=== PATIENT | female | born 1945 | race African-American/Black ===

== ENCOUNTER 2020-05-21 08:18 | Outpatient (REF) | payer MEDICAID, OTHER, SELFPAY ==
--- NOTE | ~2020-05-21 | CT_ITS ---
EXAMINATION: CT ABDOMEN AND PELVIS WITH CONTRAST CLINICAL INFORMATION: Colon cancer COMPARISON: Previous CT of the abdomen and pelvis most recent December 2019 TECHNIQUE: Multidetector volumetric images were obtained from the superior aspect of the liver through the pubic symphysis following administration 85 mL of Omnipaque 350 intravenous contrast. Sagittal and coronal reformatted images were obtained on the technologist's workstation. Oral contrast: Yes This CT examination was performed using dose optimization techniques as appropriate, variously including the following: *Automated exposure control *Adjustment of mA and/or kV according to patient size (this includes techniques or standardized protocols for targeted exams where dose is matched to indication/reason for exam; i.e. extremities or head) *Use of iterative reconstruction technique DLP: 358 mGy-cm FINDINGS: LUNG BASES: There are multiple new small bilateral pulmonary nodules. The largest measures 5 mm in the left lower lobe axial image 13 series 5, in the right lower lobe axial image 6 series 5 and in the right middle lobe axial image 1 series 5. LIVER, GALLBLADDER, AND BILIARY TREE: There are 2 new low-attenuation liver lesions measuring 1 cm in the medial segment of the left lobe of the liver and 6 mm in the anterior segment of the right lobe of the liver axial image 22 series 3. The gallbladder is unremarkable. There is no intra or extrahepatic biliary duct dilatation. PANCREAS: Unremarkable. SPLEEN: Unremarkable. ADRENAL GLANDS: Unremarkable. KIDNEYS AND URETERS: The kidneys are normal in size, shape, and attenuation. No hydronephrosis, hydroureter, or calculi seen. No perinephric stranding. BLADDER: Unremarkable. GASTROINTESTINAL TRACT: There are postsurgical changes to the right colon. The small and large bowel are otherwise unremarkable. The appendix is not identified and has presumably been removed. ABDOMINAL WALL: No significant hernia is appreciated. LYMPH NODES: There is increasing diffuse lymphadenopathy. There are increasing retrocrural lymph nodes in the chest and retroperitoneal lymph nodes and small bowel mesentery lymph nodes in the abdomen. Largest lymph node is a left periaortic retroperitoneal lymph node measuring 1.7 x 2.6 cm axial image 40 series 3 compared to 1.4 x 1.6 cm on December 2019 exam. No pelvic lymphadenopathy is seen. There is no ascites. VASCULAR: Unremarkable. PELVIC VISCERA: Unremarkable. OSSEOUS STRUCTURES: There are degenerative changes of the spine. No fracture or bone lesion is seen. CT/CT abdomen pelvis w con IMPRESSION: New bibasilar pulmonary nodules. New liver lesions. Increasing abdominal lymphadenopathy and retrocrural adenopathy in the lower chest. Findings are suggestive of progression of metastatic disease.
[2020-05-21] MEDS: Barium Sulfate Oral (Vanilla) 450 ML ORAL.SUSP 900 ML PO (10:27)
[2020-05-21] MEDS: iohexoL 350 MG/ML 100 ML INFUS..BTL 85 ML IV (10:53)
--- NOTE | 2020-05-23 13:19 | MHC.HEMONCSW ---
[facility] IS WORSENING PER DR. ESCALANTE. SHE TOLD THIS TO PATIENT AND HER FLOATMAN DENAE. I TRIED TO REACH DENAE TO FIND OUT IF PATIENT IS RETURNING TO [place] OF IF A LETTER IS NEEDED FAMILY MAY COME HERE. WAIT TO HEAR BACK.
== END 2020-05-21 08:19 | disposition home or self-care (01) ==
LOC: HO.CT 08:18
PROVIDERS: Visit Provider Internal Medicine Medical Oncology
DX: C18.9 Malignant neoplasm of colon, unspecified (principal)
CPT/HCPCS: 74177; Q9967

== ENCOUNTER → 2023-12-08 14:42 | Outpatient (RCR) | payer MEDICAID, OTHER, SELFPAY ==
--- NOTE | 2020-01-15 13:23 | P.PNHO_ITS ---
Medical Summary - Medical Summary Chief complaint: FOLLOW-UP FOR: Colon carcinoma with disease recurrence. Medical Summary: DIAGNOSIS: A. Ascending colon: Fragments of invasive moderately differentiated adenocarcinoma, and fragments of hyperplastic colonic mucosa. B. Colon, splenic flexure polyp: Tubular adenoma. She had resection done on March by Dr. Farley. Pathology revealed: Margins uninvolved by tumor/dysplasia. Three out of 14 (3/14) lymph nodes positive for metastatic carcinoma. See synoptic report below. TUMOR SITE: Ascending colon TUMOR SIZE: 5.0 x 4.5 cm TUMOR PERFORATION: Not identified HISTOLOGIC TYPE: Adenocarcinoma HISTOLOGIC GRADE: G2: Moderately differentiated TUMOR EXTENSION: Tumor invades through the muscularis propria into the pericolonic tissue MARGINS: All margins are uninvolved by carcinoma or dysplasia LYMPHOVASCULAR INVASION: Not identified PERINEURAL INVASION: Not identified TUMOR DEPOSITS: Present, one Tumor deposit REGIONAL LYMPH NODES: NUMBER INVOLVED: 3 NUMBER EXAMINED: 14 ADDITIONAL FINDINGS: Appendix within normal limits, inflammatory polyp PATHOLOGIC STAGE: pT3N1b CURRENT THERAPY: FOLFOX -based chemotherapy, started April 26. CYCLE 6 DAY 15 on 11/01 2018. Interval History Interval history: This is a pleasant 74-year-old lady, here for a follow-up visit. She does not feel too well. She has noticed some mouth sores. She denies any cough nor sputum. She denies any fever nor chills. She denies headache no dizziness. No chest pain or trouble breathing. She denies any abdominal pain nausea vomiting heartburn indigestion. Bowels are working without any gross blood in it. Her appetite is good. Her weight is stable. She feels numbness and tingling in her hands and legs. It is about the same, as before. She is in good spirits. Rest of the review of systems is unremarkable. Review of Systems - Constitutional Reports fatigue, Reports lack of energy - Eyes Denies blurry vision - ENT Reports system reviewed and no additional complaints, except as documented, Reports mouth lesions, Denies epistaxis - Cardiovascular Denies excessive sweating - Respiratory Denies cough - Gastrointestinal Denies abdominal pain, Denies vomiting blood - Musculoskeletal Denies abnormal walking - Integumentary/Breasts Skin/Breast: Denies bleeding lesions - Neurologic Reports system reviewed and no additional complaints, except as documented - Psychiatric Reports change in appetite - Hematologic/Lymphatic Denies easy bleeding - Allergic/Immunologic Denies GI upset with certain foods Home Medications and Allergies Home Medications Medication Instructions Recorded Confirmed Type acetaminophen 500 mg PO Q6H PRN 01/15/20 01/15/20 History ascorbic acid (vitamin C) 1,000 mg PO DAILY 01/15/20 01/15/20 History nkqnphirbh-vhkhpcymhhunc-alwr 1 cap PO Q6H PRN 01/15/20 01/15/20 History [Fioricet] docusate sodium [Colace] 100 mg PO DAILY 01/15/20 01/15/20 History ferrous sulfate 324 mg PO BID 01/15/20 01/15/20 History gabapentin 100 mg PO TID 01/15/20 01/15/20 History omeprazole 40 mg PO BID 01/15/20 01/15/20 History tramadol 50 mg PO BID PRN 01/15/20 01/15/20 History vitamin B complex [B 1 tab PO DAILY 01/15/20 01/15/20 History Complex-Vitamin B12] Allergies Allergy/AdvReac Type Severity Reaction Status Date / Time No Known Allergies Allergy Unverified 12/28/19 19:32 [No Known Allergies*] Exam - Constitutional Present: no acute distress - Routine HEENT Exam Head: Present: normal inspection ENT: Present: mucous membranes moist - Routine Neck Exam Present: full ROM - Routine Respiratory Exam Present: CTAB - Routine Cardiovascular Exam Cardiovascular: Present: RRR, S1, S2 - Routine Abdominal Exam Present: soft, nontender - Routine Rectal Exam Patient deferred: digital exam - Routine Extremities Exam Present: nontender Data - Labs CBC & Chem 7: 01/15/20 13:49 01/15/20 13:49 Progress Note: A/P (1) Metastatic colon cancer in female Status: Acute Assessment and plan: This is a pleasant 74 year-old lady, with Colon Cancer She underwent surgical resection on March 15 2018. Pathology revealed 3/ lymph nodes, stage pT3, N1b. She is on adjuvant chemotherapy, with FOLFOX-based regimen, in view of the pos itive Lymph nodes. She had complained of pain in her right upper quadrant area, at one of her previous visits. CT scan of the abdomen showed: New postsurgical changes following right colectomy. Stool throughout the colon questionable for constipation. Thickened heterogeneous-appearing endometrium. Follow-up pelvic ultrasound was done on August 22 and showed: Thickened heterogenous endometrium with cystic areas seen. No visible focal lesion. Ovaries are not seen. She had an exam by Dr. Farley, in November. He noted hemorrhoids. She had a pelvic exam and hysteroscopy under anesthesia on December [address] Roger. Pathology revealed: Endometrium, shavings: Fragments of inactive endometrium with cystic atrophy; few fragments with polypoid features; no fragments of leiomyoma identified. I am so glad there was no malignancy. She is on the Gabapentin 200 mg 3 times a day, for the neuropathy. Her symptoms have improved. I repeated her CT scan of the chest and abdomen. This revealed: Question slight interval increase in soft tissue surrounding the surgical staple line in the right lower quadrant post right colectomy. New low-attenuation or cystic lesion in the small bowel mesentery questionable for a necrotic lymph node. Findings are concerning for possible recurrent disease. Correlation with CEA level and attention on follow-up recommended. Mild diverticulosis of the colon. Repeat CEA level was 1.6. She saw Dr. Farley, to follow-up on the above findings. She had a colonoscopy done on June [address] Farley. It revealed: 1. Some redness on one area of the anastomotic site. 2. Small polyp about 3 mm area of the level of about 60 cm. 3. External hemorrhoids. Pathology revealed: A. Anastomosis, biopsies: Colonic mucosa within normal limits; negative for dysplasia or malignancy. B. Colon, polyp at 60 cm, polypectomy: Tubular adenoma; negative for high- grade dysplasia. Last time, she complained of pain and swelling over the left neck. There was some tenderness and swelling. I proceeded with an ultrasound of the area to rule out any evidence of DVT. This came back negative for DVT. I tried to order a PET/ CT scan to follow-up on the abnormalities on the CT scan from June 06. However her insurance does not cover the PET scan. CT scan of the abdomen from 12/13 revealed: * No evidence of metastatic disease within the chest. * Worse retroperitoneal and mesenteric lymphadenopathy. * Unremarkable right lower quadrant ileocolic anastomosis without evidence of local recurrence. Lymph node, left retroperitoneal, biopsy From 12/28 revealed: - Moderately differentiated adenocarcinoma involving fibrovascular tissue. - Background adipose tissue and skeletal muscle. - Definitive lymph node sampling not seen. COMMENT: The morphology of the tumor is consistent with a colon primary. MSI, lackey-TRK, KRAS, NRAS and BRAF testing can be attempted, though the volume of tumor in the sample is low. PLAN: I am waiting for the molecular test results to return: KRAS etc. So we can make a treatment plan based upon the results. She will return in a couple of weeks for a follow-up visit. She will call for any problems prior to that time. Thanks, - Time Spent With Patient Total time spent is greater than 50% in coordination of care (as documented) at patient's floor/unit and/or counseling patient: 15 - 24 minutes
[2020-01-15 13:44] VITALS: BMI 30.2
[2020-01-15 13:45] VITALS: BP 133/68; PULSE 81; RESP 18; TEMP 36.4; O2SAT 97
[2020-01-15 14:39] LABS: Basophils Percent Auto 0.5 % (0-2); Eosinophils Absolute Auto 0.4 X10*3/uL (0.0-0.4); Hematocrit 36.9 % (37-47); Hemoglobin 11.7 g/dl (12.0-16.0); Imm Gran Abs Auto 0.01 X10*3/uL (0.00-0.03); Imm Gran Pct Auto 0.2 % (0.0-0.4); Lymphocytes Absolute Auto 1.1 X10*3/uL (1.2-4.9); Lymphocytes Percent Auto 26.6 % (20-40); MANUAL DIFF FLAG NO; Mean Corpuscular HGB Conc 31.7 g/dl (31.0-35.0); Mean Corpuscular Hemoglobin 27.7 pg (27.0-33.0); Mean Corpuscular Volume 87.4 fL (80-98); Mean Platelet Volume 9.5 fL (9.4-12.3); Monocytes Absolute Auto 0.3 X10*3/uL (0.1-1.2); Monocytes Percent Auto 7.3 % (2-11); Neutrophils Absolute Auto 2.3 X10*3/uL (2.0-8.3); Neutrophils Percent Auto 56.4 % (45-73); Platelet Count 154 X10*3/uL (160-400); Red Blood Count 4.22 X10*6/uL (4.20-5.50); Red Cell Distribution Width 13.9 % (11.0-16.0); White Blood Count 4.1 X10*3/uL (4.8-10.8)
--- NOTE | 2020-01-15 15:19 | MHC.HEMONC ---
Addendum entered by Pina Frank RN 01/15/20 15:21: Pt has mouth lesions and was previously unable to fill prescription for Magic Mouthwash at preferred pharmacy. New prescription sent to [facility] on [address], pt made aware. Original Note: Patient here for follow up appt today to discuss biopsy results. Labs were drawn, reviewed by MD. Follow up scheduled for 2 weeks.
[2020-01-15 16:57] LABS: Alanine Aminotransferase 15 U/L (0-31); Albumin Level 4.2 g/dL (3.5-5.0); Alkaline Phosphatase 86 U/L (39-117); Anion Gap 12 (12-20); Aspartate Amino Transferase 20 U/L (5-31); Bilirubin Total 1.3 mg/dL (0.0-1.0); Blood Urea Nitrogen 12 mg/dL (9-16); Calcium 9.2 mg/dL (8.4-10.2); Carbon Dioxide 28 mmol/L (22-29); Chloride 103 mmol/L (96-108); Creatinine Clr Calc Pharmacy 59.2; Estimated Glomerular Filt Rate > 60; Glucose Random 115 mg/dL (60-115); Potassium 4.1 mmol/l (3.3-5.1); Sodium 139 mmol/L (135-145)
--- NOTE | 2020-01-16 09:38 | MHC.HEMONCSW ---
PT CONTINUES TREATMENT, RECENT BIOPSY SHOWS ADENOCARCINOMA. S/P CLON SURGERY FOR CANCER. GOOD SUPPORT SYSTEM IS IN PLACE. HER [facility]S WIT[facility] IN [place] [facility] SPONSORED HER TRIP HERE FOR MEDICAL TREATMENT A FEW YEARS AGO. SHE RESIDES WITH A SPONSOR FAMILY AND IS COPING WELL. EDUCATION, RESOURCES, SUPPORT CONTINUE TO BE PROVIDED.
[2020-02-01 15:32] VITALS: BP 134/62; PULSE 68; RESP 18; TEMP 36.4; O2SAT 100
[2020-02-01 15:34] VITALS: BMI 29.4
[2020-02-01 15:56] LABS: MANUAL DIFF FLAG NO
[2020-02-01 16:07] LABS: Basophils Percent Auto 0.7 % (0-2); Eosinophils Absolute Auto 0.5 X10*3/uL (0.0-0.4); Eosinophils Percent Auto 10.1 % (0-4); Hematocrit 36.3 % (37-47); Hemoglobin 11.7 g/dl (12.0-16.0); Lymphocytes Absolute Auto 1.3 X10*3/uL (1.2-4.9); Mean Corpuscular HGB Conc 32.2 g/dl (31.0-35.0); Mean Corpuscular Hemoglobin 28.1 pg (27.0-33.0); Mean Corpuscular Volume 87.1 fL (80-98); Mean Platelet Volume 9.4 fL (9.4-12.3); Monocytes Absolute Auto 0.4 X10*3/uL (0.1-1.2); Monocytes Percent Auto 8.3 % (2-11); Neutrophils Absolute Auto 2.3 X10*3/uL (2.0-8.3); Neutrophils Percent Auto 50.9 % (45-73); Platelet Count 157 X10*3/uL (160-400); Red Blood Count 4.17 X10*6/uL (4.20-5.50); Red Cell Distribution Width 13.5 % (11.0-16.0); White Blood Count 4.5 X10*3/uL (4.8-10.8)
--- NOTE | 2020-02-01 16:17 | PM.HEMONCPN ---
Medical Summary - Medical Summary Chief complaint: follow-up for: recurrent Colon carcinoma. Medical Summary: DIAGNOSIS: A. Ascending colon: Fragments of invasive moderately differentiated adenocarcinoma, and fragments of hyperplastic colonic mucosa. B. Colon, splenic flexure polyp: Tubular adenoma. She had resection done on March by Dr. Farley. Pathology revealed: Margins uninvolved by tumor/dysplasia. Three out of 14 (3/14) lymph nodes positive for metastatic carcinoma. See synoptic report below. TUMOR SITE: Ascending colon TUMOR SIZE: 5.0 x 4.5 cm TUMOR PERFORATION: Not identified HISTOLOGIC TYPE: Adenocarcinoma HISTOLOGIC GRADE: G2: Moderately differentiated TUMOR EXTENSION: Tumor invades through the muscularis propria into the pericolonic tissue MARGINS: All margins are uninvolved by carcinoma or dysplasia LYMPHOVASCULAR INVASION: Not identified PERINEURAL INVASION: Not identified TUMOR DEPOSITS: Present, one Tumor deposit REGIONAL LYMPH NODES: NUMBER INVOLVED: 3 NUMBER EXAMINED: 14 ADDITIONAL FINDINGS: Appendix within normal limits, inflammatory polyp PATHOLOGIC STAGE: pT3N1b CURRENT THERAPY: FOLFOX -based chemotherapy, started April 26. CYCLE 6 DAY 15 on 11/01 2018. Now with disease recurrence. Interval History Interval history: This is a pleasant 74-year-old lady, here for a follow-up visit. She does not feel too well. Earlier in this week she has had abdominal pain. It is in the periumbilical area. Not related to meals. It gets to be up till 10 on 1-10 scale. She denies nausea or vomiting. Bowels are working without any gross blood in it. Her appetite is good. Her weight is stable. She denies any cough nor sputum. She denies any fever nor chills. She denies headache no dizziness. No chest pain or trouble breathing. She feels numbness and tingling in her hands and legs. It is about the same, as before. She is in good spirits. Rest of the review of systems is unremarkable. Review of Systems - Constitutional Reports system reviewed and no additional complaints, except as documented, Reports fatigue - Eyes Reports system reviewed and no additional complaints, except as documented - ENT Reports system reviewed and no additional complaints, except as documented - Cardiovascular Reports system reviewed and no additional complaints, except as documented - Gastrointestinal Reports system reviewed and no additional complaints, except as documented, Reports abdominal pain, Reports bloating, Denies vomiting - Genitourinary Reports no additional female genitourinary complaints - Musculoskeletal Reports system reviewed and no additional complaints, except as documented - Integumentary/Breasts Skin/Breast: Reports no additional skin complaints - Neurologic Reports system reviewed and no additional complaints, except as documented, Denies abnormal gait - Psychiatric Reports system reviewed and no additional complaints, except as documented - Endocrine Reports no additional endocrine complaints - Hematologic/Lymphatic Reports system reviewed and no additional complaints, except as documented - Allergic/Immunologic Reports system reviewed and no additional complaints, except as documented [facility] Functional capacity: independent ambulation Surgical History: Surgical History (Last Updated 02/01/20 @ 16:21 by Girish Roth MD) S/P right colectomy Home Medications and Allergies Home Medications Medication Instructions Recorded Confirmed Type acetaminophen 500 mg PO Q6H PRN 01/15/20 01/15/20 History ascorbic acid (vitamin C) 1,000 mg PO DAILY 01/15/20 01/15/20 History efsmuvnuwo-mbabpalyuaqly-ivhy 1 cap PO Q6H PRN 01/15/20 01/15/20 History [Fioricet] docusate sodium [Colace] 100 mg PO DAILY 01/15/20 01/15/20 History ferrous sulfate 324 mg PO BID 01/15/20 01/15/20 History gabapentin 100 mg PO TID 01/15/20 01/15/20 History omeprazole 40 mg PO BID 01/15/20 01/15/20 History tramadol 50 mg PO BID PRN 01/15/20 01/15/20 History vitamin B complex [B 1 tab PO DAILY 01/15/20 01/15/20 History Complex-Vitamin B12] Allergies Allergy/AdvReac Type Severity Reaction Status Date / Time No Known Allergies Allergy Unverified 12/28/19 19:32 [No Known Allergies*] Exam Vital signs: Vital Signs Temp 97.5 F 02/01/20 15:32 Pulse 68 02/01/20 15:32 Resp 18 02/01/20 15:32 BP 134/62 02/01/20 15:32 Pulse Ox 100 02/01/20 15:32 Intake & Output 01/31/20 02/01/20 02/01/20 18:59 06:59 18:59 Other: Weight 75.4 kg Weight 75.4 kg Body Mass Index 29.4 - Constitutional Present: no acute distress, mild distress - Routine HEENT Exam Head: Present: normal inspection ENT: Present: mucous membranes moist - Routine Neck Exam Present: full ROM - Routine Respiratory Exam Present: CTAB - Routine Cardiovascular Exam Cardiovascular: Present: RRR, S1, S2 - Routine Abdominal Exam Present: nontender - Routine Rectal Exam Patient deferred: digital exam - Routine Extremities Exam Present: nontender - Routine Skin Exam Present: intact - Routine Neurological Exam Present: alert, oriented X3 - Detailed Neurological Exam: Coma Scale Eye Opening: Spontaneous (4) Verbal Response: Oriented (5) - Routine Psychiatric Exam Present: normal affect Data - Labs CBC & Chem 7: 02/01/20 15:45 02/01/20 15:45 Labs: Laboratory Results - last 24 hr 02/01/20 15:45 WBC 4.5 L RBC 4.17 L Hgb 11.7 L Hct 36.3 L MCV 87.1 MCH 28.1 MCHC 32.2 RDW 13.5 Plt Count 157 L MPV 9.4 Immature Gran % (Auto) 0.0 Neut % (Auto) 50.9 Lymph % (Auto) 30.0 [place] % (Auto) 8.3 Eos % (Auto) 10.1 H Baso % (Auto) 0.7 Lymph # (Auto) 1.3 [place] # (Auto) 0.4 Eos # (Auto) 0.5 H Baso # (Auto) 0.0 Abs Immat Gran (auto) 0.00 Absolute Neuts (auto) 2.3 Absolute Nucleated RBC 0.000 Nucleated RBC % (auto) 0.0 Progress Note: A/P (1) Metastatic colon cancer in female Status: Acute Assessment and plan: This is a pleasant 74 year-old lady, with Colon Cancer She underwent surgical resection on March 15 2018. Pathology revealed 3 lymph nodes, stage pT3, N1b. She is on adjuvant chemotherapy, with FOLFOX-based regimen, in view of the positive Lymph nodes. She had complained of pain in her right upper quadrant area, at one of her previous visits. CT scan of the abdomen showed: New postsurgical changes following right colectomy. Stool throughout the colon questionable for constipation. Thickened heterogeneous-appearing endometrium. Follow-up pelvic ultrasound was done on August 22 and showed: Thickened heterogenous endometrium with cystic areas seen. No visible focal lesion. Ovaries are not seen. She had an exam by Dr. Farley, in November. He noted hemorrhoids. She had a pelvic exam and hysteroscopy under anesthesia on December [address] Roger. Pathology revealed: Endometrium, shavings: Fragments of inactive endometrium with cystic atrophy; few fragments with polypoid features; no fragments of leiomyoma identified. I am so glad there was no malignancy. She is on the Gabapentin 200 mg 3 times a day, for the neuropathy. Her symptoms improved. I repeated her CT scan of the chest and abdomen. This revealed: Question slight interval increase in soft tissue surrounding the surgical staple line in the right lower quadrant post right colectomy. New low-attenuation or cystic lesion in the small bowel mesentery questionable for a necrotic lymph node. Findings are concerning for possible recurrent disease. Correlation with CEA level and attention on follow-up recommended. Mild diverticulosis of the colon. Repeat CEA level was 1.6. She saw Dr. Farley, to follow-up on the above findings. She had a colonoscopy done on June [address] Farley. It revealed: 1. Some redness on one area of the anastomotic site. 2. Small polyp about 3 mm area of the level of about 60 cm. 3. External hemorrhoids. Pathology revealed: A. Anastomosis, biopsies: Colonic mucosa within normal limits; negative for dysplasia or malignancy. B. Colon, polyp at 60 cm, polypectomy: Tubular adenoma; negative for high-grade dysplasia. CT scan of the abdomen from 12/13 revealed: * No evidence of metastatic disease within the chest. * Worse retroperitoneal and mesenteric lymphadenopathy. * Unremarkable right lower quadrant ileocolic anastomosis without evidence of local recurrence. biopsy of the lymph node from 12/28 revealed: Lymph node, left retroperitoneal, biopsy: - Moderately differentiated adenocarcinoma involving fibrovascular tissue. - Background adipose tissue and skeletal muscle. - Definitive lymph node sampling not seen. The morphology of the tumor is consistent with a colon primary. MSI, lackey-TRK, KRAS, NRAS and BRAF testing can be attempted, though the volume of tumor in the sample is low. KRAS Mutation: Not Detected PLAN: Results of the KRAS mutation are as above. My plan is to treat her with Irinotecan and Vectibix based regimen. Details of the regimen including potential side effects of skin rash, hypersensitivity reaction, nausea vomiting diarrhea, renal toxicity, peripheral neuropathy, risk of infection, need for antibiotic blood transfusion and growth factors were all addressed with her. She understands and is willing to proceed. Will get prior authorization and get her started next . In the meantime, she has been given a prescription for oxycodone for the pain. She was advised to take a bowel regimen with it. thank you, cc: Dr. Farley. - Time Spent With Patient Total time spent is greater than 50% in coordination of care (as documented) at patient's floor/unit and/or counseling patient: 25 - 35 minutes
[2020-02-01 16:36] LABS: Alanine Aminotransferase 11 U/L (0-31); Albumin Level 4.2 g/dL (3.5-5.0); Alkaline Phosphatase 87 U/L (39-117); Anion Gap 14 (12-20); Aspartate Amino Transferase 18 U/L (5-31); Bilirubin Total 1.7 mg/dL (0.0-1.0); Blood Urea Nitrogen 17 mg/dL (9-16); Calcium 8.9 mg/dL (8.4-10.2); Carbon Dioxide 26 mmol/L (22-29); Chloride 104 mmol/L (96-108); Creatinine Clr Calc Pharmacy 62.1; Estimated Glomerular Filt Rate > 60; Glucose Random 96 mg/dL (60-115); Potassium 4.1 mmol/l (3.3-5.1); Sodium 140 mmol/L (135-145); Total Protein 7.3 g/dL (6.5-8.0)
--- NOTE | 2020-02-01 16:43 | MHC.HEMONC ---
Patient here for follow up with Dr. Roth today as well as a chemotherapy teaching for Irinotecan and Pacitumumab. Patient and her caregiver verablized understanding and agreed to treat patient. Treatment scheduled for next 02/07 at 9am.
--- NOTE | 2020-02-02 11:33 | MHC.HEMONC ---
[place], NO PA REQUIRED FOR CHEMO MEDS, EMEND, NEULASTA. PLEASE SEND ORDER TO HOSPITAL PHARM[facility]Y
[2020-02-08 08:34] VITALS: BMI 29.4
[2020-02-08 09:38] VITALS: BMI 29.8
[2020-02-08 09:39] VITALS: BP 135/63; PULSE 80; RESP 18; TEMP 36.3; O2SAT 98
[2020-02-08 10:18] LABS: MANUAL DIFF FLAG NO
[2020-02-08 10:20] LABS: Basophils Percent Auto 0.2 % (0-2); Eosinophils Absolute Auto 0.3 X10*3/uL (0.0-0.4); Eosinophils Percent Auto 6.8 % (0-4); Hematocrit 34.8 % (37-47); Hemoglobin 11.4 g/dl (12.0-16.0); Imm Gran Abs Auto 0.01 X10*3/uL (0.00-0.03); Imm Gran Pct Auto 0.2 % (0.0-0.4); Lymphocytes Absolute Auto 0.8 X10*3/uL (1.2-4.9); Lymphocytes Percent Auto 19.2 % (20-40); Mean Corpuscular HGB Conc 32.8 g/dl (31.0-35.0); Mean Corpuscular Hemoglobin 28.5 pg (27.0-33.0); Mean Platelet Volume 9.7 fL (9.4-12.3); Monocytes Absolute Auto 0.3 X10*3/uL (0.1-1.2); Monocytes Percent Auto 6.8 % (2-11); Neutrophils Absolute Auto 2.9 X10*3/uL (2.0-8.3); Neutrophils Percent Auto 66.8 % (45-73); Platelet Count 148 X10*3/uL (160-400); Red Cell Distribution Width 13.2 % (11.0-16.0); White Blood Count 4.3 X10*3/uL (4.8-10.8)
[2020-02-08 10:50] LABS: Alanine Aminotransferase 13 U/L (0-31); Alkaline Phosphatase 87 U/L (39-117); Anion Gap 12 (12-20); Aspartate Amino Transferase 20 U/L (5-31); Bilirubin Total 1.6 mg/dL (0.0-1.0); Blood Urea Nitrogen 14 mg/dL (9-16); Calcium 8.8 mg/dL (8.4-10.2); Carbon Dioxide 27 mmol/L (22-29); Chloride 103 mmol/L (96-108); Creatinine Clr Calc Pharmacy 62.6; Estimated Glomerular Filt Rate > 60; Glucose Random 150 mg/dL (60-115); Potassium 4.2 mmol/l (3.3-5.1); Sodium 138 mmol/L (135-145); Total Protein 6.8 g/dL (6.5-8.0)
[2020-02-08] MEDS: Acetaminophen 325 MG TABLET 650 MG PO (11:40)
[2020-02-08] MEDS: dexAMETHasone sod phosphate/NS 12 MG/50 ML PIGGYBACK 200 MG IV (11:42)
[2020-02-08] MEDS: diphenhydrAMINE HCL 50 MG/ML VIAL 25 MG IVPUSH (12:08)
[2020-02-08] MEDS: ondansetron HCL/NS 16 MG/50 ML PIGGYBACK 200 MG IV (12:39)
[2020-02-08] MEDS: Fosaprepitant Dimeglumine 150 MG in 0.9 % Sodium Chloride 145 ML 300 MG IV (13:03)
[2020-02-08] MEDS: oxyCODONE HCl Immed Release 5 MG TABLET PO (15:18)
[2020-02-08] MEDS: Heparin Sodium,Porcine Flush 500 UNIT/5 ML SYRINGE IVFLUSH (16:48)
[2020-02-15 15:10] VITALS: BP 120/68; PULSE 92; RESP 18; TEMP 36.6; O2SAT 99; BMI 28.8
[2020-02-15 16:07] LABS: Basophils Percent Auto 0.4 % (0-2); Eosinophils Percent Auto 1.7 % (0-4); Hematocrit 35.5 % (37-47); Hemoglobin 11.7 g/dl (12.0-16.0); Imm Gran Abs Auto 0.01 X10*3/uL (0.00-0.03); Imm Gran Pct Auto 0.4 % (0.0-0.4); Lymphocytes Absolute Auto 1.5 X10*3/uL (1.2-4.9); Lymphocytes Percent Auto 63.9 % (20-40); MANUAL DIFF FLAG SCAN; Mean Corpuscular Hemoglobin 27.7 pg (27.0-33.0); Mean Corpuscular Volume 84.1 fL (80-98); Mean Platelet Volume 9.5 fL (9.4-12.3); Monocytes Absolute Auto 0.1 X10*3/uL (0.1-1.2); Monocytes Percent Auto 5.4 % (2-11); Neutrophils Absolute Auto 0.7 X10*3/uL (2.0-8.3); Neutrophils Percent Auto 28.2 % (45-73); Platelet Count 136 X10*3/uL (160-400); Red Blood Count 4.22 X10*6/uL (4.20-5.50); Red Cell Distribution Width 12.7 % (11.0-16.0); SCAN SMEAR FLAG 1
[2020-02-15 16:20] LABS: White Blood Count 2.4 X10*3/uL (4.8-10.8)
[2020-02-15 16:37] LABS: SLIDE REVIEW VERIFIED
[2020-02-15 17:27] LABS: Alanine Aminotransferase 15 U/L (0-31); Albumin Level 4.2 g/dL (3.5-5.0); Alkaline Phosphatase 99 U/L (39-117); Anion Gap 14 (12-20); Aspartate Amino Transferase 15 U/L (5-31); Bilirubin Total 0.6 mg/dL (0.0-1.0); Blood Urea Nitrogen 18 mg/dL (9-16); Calcium 8.7 mg/dL (8.4-10.2); Carbon Dioxide 27 mmol/L (22-29); Chloride 101 mmol/L (96-108); Creatinine Clr Calc Pharmacy 54.4; Estimated Glomerular Filt Rate > 60; Glucose Random 188 mg/dL (60-115); Potassium 4.1 mmol/l (3.3-5.1); Sodium 138 mmol/L (135-145); Total Protein 7.2 g/dL (6.5-8.0)
[2020-02-20 15:58] VITALS: BMI 28.9
[2020-02-22 10:07] VITALS: BP 118/58; PULSE 82; RESP 12; TEMP 36.8; O2SAT 98; BMI 28.9
[2020-02-22 10:40] LABS: Eosinophils Percent Auto 0.4 % (0-4); Hematocrit 35.8 % (37-47); Hemoglobin 11.8 g/dl (12.0-16.0); Imm Gran Abs Auto 0.01 X10*3/uL (0.00-0.03); Imm Gran Pct Auto 0.4 % (0.0-0.4); Lymphocytes Absolute Auto 1.1 X10*3/uL (1.2-4.9); Lymphocytes Percent Auto 44.8 % (20-40); MANUAL DIFF FLAG SCAN; Mean Corpuscular Hemoglobin 28.2 pg (27.0-33.0); Mean Corpuscular Volume 85.6 fL (80-98); Monocytes Absolute Auto 0.5 X10*3/uL (0.1-1.2); Monocytes Percent Auto 20.4 % (2-11); Neutrophils Absolute Auto 0.9 X10*3/uL (2.0-8.3); Platelet Count 158 X10*3/uL (160-400); Red Blood Count 4.18 X10*6/uL (4.20-5.50); Red Cell Distribution Width 13.5 % (11.0-16.0); SCAN SMEAR FLAG 1
[2020-02-22 10:42] LABS: White Blood Count 2.5 X10*3/uL (4.8-10.8)
[2020-02-22 11:02] LABS: Alanine Aminotransferase 15 U/L (0-31); Albumin Level 4.1 g/dL (3.5-5.0); Alkaline Phosphatase 96 U/L (39-117); Anion Gap 12 (12-20); Aspartate Amino Transferase 13 U/L (5-31); Bilirubin Total 0.8 mg/dL (0.0-1.0); Blood Urea Nitrogen 15 mg/dL (9-16); Calcium 9.1 mg/dL (8.4-10.2); Carbon Dioxide 27 mmol/L (22-29); Chloride 104 mmol/L (96-108); Creatinine Clr Calc Pharmacy 59.2; Estimated Glomerular Filt Rate > 60; Glucose Random 128 mg/dL (60-115); Potassium 3.7 mmol/l (3.3-5.1); Sodium 139 mmol/L (135-145); Total Protein 6.9 g/dL (6.5-8.0)
[2020-02-22 11:33] LABS: SLIDE REVIEW VERIFIED
[2020-02-22] MEDS: Acetaminophen 325 MG TABLET 650 MG PO (12:26)
[2020-02-22] MEDS: diphenhydrAMINE HCL 25 MG TABLET PO (12:27)
[2020-02-22] MEDS: dexAMETHasone sod phosphate/NS 12 MG/50 ML PIGGYBACK 200 MG IV (12:28)
[2020-02-22] MEDS: ondansetron HCL/NS 16 MG/50 ML PIGGYBACK 200 MG IV (12:53)
[2020-02-22] MEDS: oxyCODONE HCl Immed Release 5 MG TABLET PO (13:07)
[2020-02-22] MEDS: Fosaprepitant Dimeglumine 150 MG in 0.9 % Sodium Chloride 145 ML 300 MG IV (13:08)
--- NOTE | 2020-02-22 13:55 | MHC.HEMONCSW ---
[place]. orders neulasta. no pa for limited.
[2020-02-22] MEDS: Pegfilgrastim Onpro 6 MG/0.6 ML SYR.W..INJ SUBCUT (16:40)
[2020-02-22] MEDS: Heparin Sodium,Porcine Flush 500 UNIT/5 ML SYRINGE IVFLUSH (16:40)
--- NOTE | 2020-02-23 09:11 | MHC.HEMONCSW ---
PT CONTINUES CHEMOTHERAPY. DOES NOT FEEL WELL, RELIES ON HER MARTIN FOR STRENGTH. EDUCATION, GUIDANCE AND SUPPORT PROVIDED.
[2020-02-29 10:20] VITALS: BMI 28.2
[2020-02-29 10:23] VITALS: BP 129/78; PULSE 107; RESP 18; TEMP 35.9; O2SAT 100
[2020-02-29] MEDS: 0.9 % Sodium Chloride 1,000 ML 500 ML IVCONT (11:18)
[2020-02-29 11:37] LABS: Hematocrit 37.7 % (37-47); Hemoglobin 12.6 g/dl (12.0-16.0); Mean Corpuscular HGB Conc 33.4 g/dl (31.0-35.0); Mean Corpuscular Volume 83.8 fL (80-98); Mean Platelet Volume 9.9 fL (9.4-12.3); Platelet Count 136 X10*3/uL (160-400); Red Cell Distribution Width 13.3 % (11.0-16.0); WBC ABN SCTR FOR CBC 1
[2020-02-29] MEDS: Acetaminophen 325 MG TABLET 650 MG PO (12:16)
[2020-02-29] MEDS: ondansetron HCL/NS 16 MG/50 ML PIGGYBACK 200 MG IV (12:18)
[2020-02-29 12:28] LABS: Band Neutrophils Percent 8 % (3-5); Lymphocytes Percent Manual 11 % (20-40); Metamyelocytes Percent 3 %; Monocytes Percent Manual 6 % (2-11); Neutrophils Percent Manual 72 % (45-73)
[2020-02-29 12:29] LABS: Dohle Bodies PRESENT; Platelet Estimate DECREASED (NORMAL); Platelet Morphology Comment NORMAL; RBC Morphology NORMAL
[2020-02-29 12:30] LABS: Lymphocytes Absolute Manual 1.4 X10*3/uL (0.6-4.8); Metamyelocytes Absolute 0.4 X10*3/uL; Monocytes Absolute Manual 0.8 X10*3/uL (0.0-1.2); Neutrophils Absolute Manual 10.4 X10*3/uL (2.2-7.9)
[2020-02-29 12:32] LABS: Alanine Aminotransferase 15 U/L (0-31); Alkaline Phosphatase 143 U/L (39-117); Anion Gap 15 (12-20); Aspartate Amino Transferase 17 U/L (5-31); Bilirubin Total 0.7 mg/dL (0.0-1.0); Blood Urea Nitrogen 18 mg/dL (9-16); Carbon Dioxide 25 mmol/L (22-29); Chloride 103 mmol/L (96-108); Creatinine Clr Calc Pharmacy 57.8; Estimated Glomerular Filt Rate > 60; Glucose Random 126 mg/dL (60-115); Sodium 139 mmol/L (135-145); Total Protein 6.9 g/dL (6.5-8.0)
--- NOTE | 2020-02-29 13:49 | MHC.HEMONC ---
Patient complained of weakness and headache with poor po intake over the last few days. Dr. Roth aware. Orders for 1L hydration/zofran and tylenol. Patient reports improvement in her symptoms post hydration. Port de-accessed. Patient to return next week for chemotherapy.
[2020-03-14 09:29] VITALS: BMI 28.4
[2020-03-14 09:29] LABS: MANUAL DIFF FLAG NO
[2020-03-14 09:30] VITALS: BP 115/57; PULSE 82; TEMP 35.6; O2SAT 98
[2020-03-14 09:46] LABS: Basophils Absolute Auto 0.1 X10*3/uL (0.0-0.2); Basophils Percent Auto 0.5 % (0-2); Eosinophils Absolute Auto 0.1 X10*3/uL (0.0-0.4); Eosinophils Percent Auto 1.2 % (0-4); Hematocrit 36.3 % (37-47); Hemoglobin 11.6 g/dl (12.0-16.0); Imm Gran Abs Auto 0.28 X10*3/uL (0.00-0.03); Lymphocytes Absolute Auto 1.8 X10*3/uL (1.2-4.9); Lymphocytes Percent Auto 18.9 % (20-40); Mean Corpuscular Hemoglobin 27.8 pg (27.0-33.0); Mean Corpuscular Volume 87.1 fL (80-98); Mean Platelet Volume 9.8 fL (9.4-12.3); Monocytes Absolute Auto 0.7 X10*3/uL (0.1-1.2); Monocytes Percent Auto 7.8 % (2-11); Neutrophils Absolute Auto 6.5 X10*3/uL (2.0-8.3); Neutrophils Percent Auto 68.6 % (45-73); Platelet Count 192 X10*3/uL (160-400); Red Blood Count 4.17 X10*6/uL (4.20-5.50); Red Cell Distribution Width 15.7 % (11.0-16.0); White Blood Count 9.5 X10*3/uL (4.8-10.8)
[2020-03-14 10:18] LABS: Alanine Aminotransferase 14 U/L (0-31); Albumin Level 3.7 g/dL (3.5-5.0); Alkaline Phosphatase 92 U/L (39-117); Anion Gap 12 (12-20); Aspartate Amino Transferase 11 U/L (5-31); Bilirubin Total 0.9 mg/dL (0.0-1.0); Blood Urea Nitrogen 15 mg/dL (9-16); Calcium 8.7 mg/dL (8.4-10.2); Carbon Dioxide 26 mmol/L (22-29); Chloride 105 mmol/L (96-108); Creatinine Clr Calc Pharmacy 63.7; Estimated Glomerular Filt Rate > 60; Glucose Random 177 mg/dL (60-115); Potassium 3.3 mmol/l (3.3-5.1); Sodium 140 mmol/L (135-145); Total Protein 6.2 g/dL (6.5-8.0)
[2020-03-14] MEDS: ondansetron HCL/NS 16 MG/50 ML PIGGYBACK 200 MG IV (11:01)
[2020-03-14] MEDS: diphenhydrAMINE HCL 50 MG/ML VIAL 25 MG IVPUSH (11:28)
[2020-03-14] MEDS: dexAMETHasone sod phosphate/NS 12 MG/50 ML PIGGYBACK 200 MG IV (11:51)
[2020-03-14] MEDS: Fosaprepitant Dimeglumine 150 MG in 0.9 % Sodium Chloride 145 ML 300 MG IV (12:13)
[2020-03-14] MEDS: Irinotecan HCl 300 MG, Irinotecan HCl 20 MG in Dextrose 5 % 500 ML 344 MG IV (14:16)
[2020-03-14] MEDS: Pegfilgrastim Onpro 6 MG/0.6 ML SYR.W..INJ SUBCUT (16:10)
[2020-03-14] MEDS: Heparin Sodium,Porcine Flush 500 UNIT/5 ML SYRINGE IVFLUSH (16:10)
--- NOTE | 2020-03-14 16:35 | MHC.HEMONC ---
Pt here for chemo infusion. Port accessed, labs drawn. Labs reviewed. At end of infusion, pt c/o abd pain, states it comes and goes. States she thought she needed to have BM but was unable. States pain subsided some, and states will take pain meds when she gets home. Scheduled to return in 2 weeks for chemo and follow up with Dr Roth.
[2020-03-28 08:20] VITALS: BMI 28.4
--- NOTE | 2020-03-28 09:13 | PM.HEMONCPN ---
Medical Summary - Medical Summary Date of Service: 03/28/20 Chief complaint: Follow-up for recurrent colon cancer. Medical Summary: DIAGNOSIS: A. Ascending colon: Fragments of invasive moderately differentiated adenocarcinoma, and fragments of hyperplastic colonic mucosa. B. Colon, splenic flexure polyp: Tubular adenoma. She had resection done on March by Dr. Farley. Pathology revealed: Margins uninvolved by tumor/dysplasia. Three out of 14 (3/14) lymph nodes positive for metastatic carcinoma. See synoptic report below. TUMOR SITE: Ascending colon TUMOR SIZE: 5.0 x 4.5 cm TUMOR PERFORATION: Not identified HISTOLOGIC TYPE: Adenocarcinoma HISTOLOGIC GRADE: G2: Moderately differentiated TUMOR EXTENSION: Tumor invades through the muscularis propria into the pericolonic tissue MARGINS: All margins are uninvolved by carcinoma or dysplasia LYMPHOVASCULAR INVASION: Not identified PERINEURAL INVASION: Not identified TUMOR DEPOSITS: Present, one Tumor deposit REGIONAL LYMPH NODES: NUMBER INVOLVED: 3 NUMBER EXAMINED: 14 ADDITIONAL FINDINGS: Appendix within normal limits, inflammatory polyp PATHOLOGIC STAGE: [id number] CURRENT THERAPY: FOLFOX -based chemotherapy, started April 26. CYCLE 6 DAY 15 on 11/01 2018. Now with disease recurrence. On Irinotecan and Erbitux cycle number: 2, day 14. Interval History Interval history: This is a pleasant 74-year-old lady, here for a follow-up visit. She does not feel too well. She is tolerating the treatment reasonably well however she has noted ongoing tingling and numbness in her hands and feet. That bothers her. She takes the gabapentin 100 mg twice a day. Sometimes she gets pain in her back. She denies any abdominal pain. She denies nausea or vomiting. Bowels are working without any gross blood in it. Her appetite is good. Her weight is stable. She denies any cough nor sputum. She denies any fever nor chills. She denies headache no dizziness. No chest pain or trouble breathing. She feels numbness and tingling in her hands and legs. It is about the same, as before. She is in good spirits. Rest of the review of systems is unremarkable. Review of Systems - Constitutional Reports no additional constitutional complaints - Eyes Reports no additional eye complaints - ENT Reports no additional ear, nose, mouth, and throat complaints - Cardiovascular Reports no additional cardiovascular complaints - Respiratory Reports no additional respiratory complaints - Gastrointestinal Reports no additional gastrointestinal complaints - Genitourinary Reports no additional female genitourinary complaints - Musculoskeletal Reports no additional musculoskeletal complaints - Integumentary/Breasts Skin/Breast: Reports no additional skin complaints - Neurologic Reports no additional neurologic complaints, Denies abnormal gait, Reports tingling - Psychiatric Reports no additional psychiatric complaints - Endocrine Reports no additional endocrine complaints - Hematologic/Lymphatic Reports no additional hematologic/lymphatic complaints - Allergic/Immunologic Reports no additional allergic/immunologic complaints PMFSH Functional capacity: independent ambulation Patient : No Surgical History: Surgical History (Last Updated 02/01/20 @ 16:21 by Girish Roth MD) S/P right colectomy Smoking status: Never smoker Home Medications and Allergies Current Medications: Current Medications Generic Name Dose Route Start Last Admin Trade Name Freq PRN Reason Stop Dose Admin Acetaminophen 650 mg 03/28/20 00:00 Acetaminophen 325 Mg Tablet PO 03/28/20 23:59 ONCE ELIZABETH Diphenhydramine HCl 25 mg 03/28/20 00:00 Diphenhydramine Hcl 50 Mg/Ml Vial IVPUSH 03/28/20 23:59 ONCE ELIZABETH Heparin Sodium (Porcine) 500 unit 03/28/20 00:00 Heparin Sodium,Porcine Flush 500 Unit/5 Ml Syringe IVFLUSH 03/28/20 23:59 ONCE ELIZABETH Ondansetron HCl 16 mg in 50 mls @ 200 mls/hr 02/29/20 11:00 02/29/20 12:33 Zofran IV Infused ONCE ELIZABETH Infusion Ondansetron HCl 16 mg in 50 mls @ 200 mls/hr 03/14/20 10:00 03/14/20 11:20 Zofran IV Infused ONCE ELZIABETH Infusion Fosaprepitant 150 mg/ Sodium 150 mls @ 300 mls/hr 03/28/20 00:00 Chloride IV 03/28/20 23:59 ONCE ELIZABETH Home Medications Medication Instructions Recorded Confirmed Type acetaminophen 500 mg PO Q6H PRN 01/15/20 03/28/20 History ascorbic acid (vitamin C) 1,000 mg PO DAILY 01/15/20 03/28/20 History tputzaisbb-[id number]-[id number] 1 cap PO Q6H PRN 01/15/20 03/28/20 History [Fioricet] docusate sodium [Colace] 100 mg PO DAILY 01/15/20 03/28/20 History ferrous sulfate 324 mg PO BID 01/15/20 03/28/20 History omeprazole 40 mg PO BID 01/15/20 03/28/20 History tramadol 50 mg PO BID PRN 01/15/20 03/28/20 History vitamin B complex [B 1 tab PO DAILY 01/15/20 03/28/20 History Complex-Vitamin B12] Allergies Allergy/AdvReac Type Severity Reaction Status Date / Time No Known Allergies Allergy Verified 02/08/20 08:33 [No Known Allergies*] Exam Vital signs: Vital Signs Temp 96.1 F L 03/14/20 09:30 Pulse 82 03/14/20 09:30 Resp 18 02/29/20 10:23 BP 115/57 L 03/14/20 09:30 Pulse Ox 98 03/14/20 09:30 Intake & Output 03/27/20 03/28/20 03/28/20 18:59 06:59 18:59 Other: Weight 72.9 kg Weight 72.9 kg Body Mass Index 28.4 - Constitutional Present: no acute distress, mild distress - Routine HEENT Exam Head: Present: normal inspection Eye: Present: normal appearance ENT: Present: mucous membranes moist - Routine Neck Exam Present: full ROM - Routine Respiratory Exam Present: CTAB - Routine Cardiovascular Exam Cardiovascular: Present: RRR, S1, S2 - Routine Abdominal Exam Present: nontender - Routine Rectal Exam Patient deferred: digital exam - Routine Extremities Exam Present: nontender - Routine Back/Spine/Pelvis Exam Back/Spine: Present: full ROM - Routine Skin Exam Present: intact - Routine Neurological Exam Present: alert, oriented X3 - Detailed Neurological Exam: Coma Scale Eye Opening: Spontaneous (4) - Routine Psychiatric Exam Present: normal affect Data - Labs CBC & Chem 7: 03/28/20 09:26 03/28/20 09:26 Labs: 01/15/20 13:49 CEA [Carcinoembryonic Antigen] Routine Complete Blood Count Auto Diff Routine Comprehensive Met. Panel Routine 01/15/20 14:25 Heparin Sodium,Porcine Flush 500 unit 0.9 % Sodium Chloride Flush [NS Flush] 5 ml IVFLUSH ONCE 02/01/20 15:42 Heparin Sodium,Porcine Flush 500 unit 0.9 % Sodium Chloride Flush [NS Flush] 5 ml IVFLUSH ONCE 02/01/20 15:45 CMP [Comprehensive Met. Panel] Routine Complete Blood Count Auto Diff Routine 02/01/20 15:47 Heparin Sodium,Porcine Flush 500 unit IVFLUSH .[facility] ONE 02/08/20 00:00 Acetaminophen [Tylenol] 650 mg PO ONCE Fosaprepitant Dimeglumine [Emend] 150 mg 0.9 % Sodium Chloride [Ns] 145 ml IV ONCE Heparin Sodium,Porcine Flush 500 unit IVFLUSH ONCE Irinotecan HCl [Camptosar] 300 mg Irinotecan HCl [Camptosar] 30 mg Dextrose 5 % [D5w] 500 ml IV ONCE Panitumumab [Vectibix] 400 mg Panitumumab [Vectibix] 60 mg 0.9 % Sodium Chloride [Ns] 77 ml IV ONCE dexAMETHasone sod phosphate/NS [Decadron] 12 mg in 50 ml IV ONCE diphenhydrAMINE HCL [Benadryl] 25 mg IVPUSH ONCE ondansetron HCL/NS [Zofran] 16 mg in 50 ml IV ONCE 02/08/20 10:07 CMP [Comprehensive Met. Panel] Routine Complete Blood Count Auto Diff Routine 02/08/20 15:00 oxyCODONE HCl Immed Release [Roxicodone] 5 mg PO ONCE ONE 02/15/20 15:18 Heparin Sodium,Porcine Flush 500 unit 0.9 % Sodium Chloride Flush [NS Flush] 5 ml IVFLUSH ONCE 02/15/20 15:24 Heparin Sodium,Porcine Flush 500 unit IVFLUSH .[facility] ONE 02/15/20 15:53 CMP [Comprehensive Met. Panel] Routine Complete Blood Count Auto Diff Routine SLIDE REVIEW Routine 02/22/20 00:00 Acetaminophen [Tylenol] 650 mg PO ONCE Fosaprepitant Dimeglumine [Emend] 150 mg 0.9 % Sodium Chloride [Ns] 145 ml IV ONCE Heparin Sodium,Porcine Flush 500 unit IVFLUSH ONCE Irinotecan HCl [Camptosar] 200 mg Irinotecan HCl [Camptosar] 40 mg Dextrose 5 % [D5w] 500 ml IV ONCE Panitumumab [Vectibix] 400 mg Panitumumab [Vectibix] 40 mg 0.9 % Sodium Chloride [Ns] 78 ml IV ONCE dexAMETHasone sod phosphate/NS [Decadron] 12 mg in 50 ml IV ONCE diphenhydrAMINE HCL [Benadryl] 25 mg PO ONCE ondansetron HCL/NS [Zofran] 16 mg in 50 ml IV ONCE 02/22/20 10:25 Complete Blood Count Auto Diff Routine Comprehensive Met. Panel Routine SLIDE REVIEW Routine 02/22/20 12:34 Pegfilgrastim Onpro [Neulasta Onpro] 6 mg SUBCUT ONCE ONE 02/22/20 12:41 oxyCODONE HCl Immed Release [Roxicodone] 5 mg PO ONCE ONE 02/23/20 00:00 Pegfilgrastim-cbqv [Udenyca] 6 mg SUBCUT ONCE 02/29/20 10:20 Heparin Sodium,Porcine Flush 500 unit 0.9 % Sodium Chloride Flush [NS Flush] 5 ml IVFLUSH ONCE 02/29/20 10:30 Heparin Sodium,Porcine Flush 500 unit IVFLUSH .[facility] ONE 02/29/20 11:00 Complete Blood Count Man Dif Routine Profile w/ Glucose Phelps [Comprehensive Met. Panel] Routine 0.9 % Sodium Chloride [Ns] 1,000 ml IVCONT 500 mls/hr 02/29/20 11:57 Acetaminophen [Tylenol] 650 mg PO ONCE ONE 03/06/20 00:00 Atropine Sulfate 0.5 mg SUBCUT ONCE Fosaprepitant Dimeglumine [Emend] 150 mg 0.9 % Sodium Chloride [Ns] 145 ml IV ONCE Heparin Sodium,Porcine Flush 500 unit IVFLUSH ONCE Pegfilgrastim Onpro [Neulasta Onpro] 6 mg SUBCUT ONCE dexAMETHasone sod phosphate/NS [Decadron] 12 mg in 50 ml IV ONCE diphenhydrAMINE HCL [Benadryl] 25 mg IVPUSH ONCE 03/14/20 00:00 Atropine Sulfate 0.5 mg SUBCUT ONCE Fosaprepitant Dimeglumine [Emend] 150 mg 0.9 % Sodium Chloride [Ns] 145 ml IV ONCE Heparin Sodium,Porcine Flush 500 unit IVFLUSH ONCE Irinotecan HCl [Camptosar] 300 mg Irinotecan HCl [Camptosar] 20 mg Dextrose 5 % [D5w] 500 ml IV ONCE Panitumumab [Vectibix] 400 mg Panitumumab [Vectibix] 40 mg 0.9 % Sodium Chloride [Ns] 78 ml IV ONCE Pegfilgrastim Onpro [Neulasta Onpro] 6 mg SUBCUT ONCE dexAMETHasone sod phosphate/NS [Decadron] 12 mg in 50 ml IV ONCE diphenhydrAMINE HCL [Benadryl] 25 mg IVPUSH ONCE 03/14/20 09:15 Complete Blood Count Auto Diff Routine Comprehensive Met. Panel Routine 03/28/20 00:00 dexAMETHasone sod phosphate/NS [Decadron] 12 mg in 50 ml IV ONCE ondansetron HCL/NS [Zofran] 16 mg in 50 ml IV ONCE Laboratory Last Values WBC 9.5 X10*3/uL (4.8-10.8) 03/14/20 09:15 RBC 4.17 X10*6/uL (4.20-5.50) L 03/14/20 09:15 Hgb 11.6 g/dl (12.0-16.0) L 03/14/20 09:15 Hct 36.3 % (37-47) L 03/14/20 09:15 MCV 87.1 fL (80-98) 03/14/20 09:15 MCH 27.8 pg (27.0-33.0) 03/14/20 09:15 MCHC 32.0 g/dl (31.0-35.0) 03/14/20 09:15 RDW 15.7 % (11.0-16.0) 03/14/20 09:15 Plt Count 192 X10*3/uL (160-400) D 03/14/20 09:15 MPV 9.8 fL (9.4-12.3) 03/14/20 09:15 Immature Gran % (Auto) 3.0 % (0.0-0.4) H 03/14/20 09:15 Neut % (Auto) 68.6 % (45-73) 03/14/20 09:15 Lymph % (Auto) 18.9 % (20-40) L 03/14/20 09:15 [place] % (Auto) 7.8 % (2-11) 03/14/20 09:15 Eos % (Auto) 1.2 % (0-4) 03/14/20 09:15 Baso % (Auto) 0.5 % (0-2) 03/14/20 09:15 Neut # (Auto) 2.3 X10*3/uL (2.0-8.3) 01/15/20 13:49 Lymph # (Auto) 1.8 X10*3/uL (1.2-4.9) 03/14/20 09:15 [place] # (Auto) 0.7 X10*3/uL (0.1-1.2) 03/14/20 09:15 Eos # (Auto) 0.1 X10*3/uL (0.0-0.4) 03/14/20 09:15 Baso # (Auto) 0.1 X10*3/uL (0.0-0.2) 03/14/20 09:15 Abs Immat Gran (auto) 0.28 X10*3/uL (0.00-0.03) H 03/14/20 09:15 Absolute Neuts (auto) 6.5 X10*3/uL (2.0-8.3) 03/14/20 09:15 Absolute Nucleated RBC 0.000 X10*3/uL (0.0-0.012) 03/14/20 09:15 Nucleated RBC % (auto) 0.0 /100WBC (0.0-0.2) 03/14/20 09:15 Neutrophils % (Manual) 72 % (45-73) 02/29/20 11:00 Band Neutrophils % 8 % (3-5) H 02/29/20 11:00 Lymphocytes % (Manual) 11 % (20-40) L 02/29/20 11:00 Monocytes % (Manual) 6 % (2-11) 02/29/20 11:00 Metamyelocytes % 3 % 02/29/20 11:00 Abs Neuts (Manual) 10.4 X10*3/uL (2.2-7.9) H 02/29/20 11:00 Lymphocytes # (Manual) 1.4 X10*3/uL (0.6-4.8) 02/29/20 11:00 Monocytes # (Manual) 0.8 X10*3/uL (0.0-1.2) 02/29/20 11:00 Metamyelocytes # 0.4 X10*3/uL 02/29/20 11:00 Dohle Bodies PRESENT 02/29/20 11:00 Platelet Estimate DECREASED (NORMAL) 02/29/20 11:00 Plt Morphology Comment NORMAL 02/29/20 11:00 RBC Morphology NORMAL 02/29/20 11:00 Smear Tech's Comments VERIFIED 02/22/20 10:25 Sodium 140 mmol/L (135-145) 03/14/20 09:15 Potassium 3.3 mmol/l (3.3-5.1) 03/14/20 09:15 Chloride 105 mmol/L (96-108) 03/14/20 09:15 Carbon Dioxide 26 mmol/L (22-29) 03/14/20 09:15 Anion Gap 12 (-20) 03/14/20 09:15 BUN 15 mg/dL (9-16) 03/14/20 09:15 Creatinine 0.73 mg/dL (0.5-1.4) 03/14/20 09:15 Estim Creat Clear Calc 63.7 03/14/20 09:15 Estimated GFR > 60 03/14/20 09:15 Random Glucose 177 mg/dL (60-115) H D 03/14/20 09:15 Calcium 8.7 mg/dL (8.4-10.2) 03/14/20 09:15 Total Bilirubin 0.9 mg/dL (0.0-1.0) 03/14/20 09:15 AST 11 U/L (5-31) 03/14/20 09:15 ALT 14 U/L (0-31) 03/14/20 09:15 Alkaline Phosphatase 92 U/L (39-117) D 03/14/20 09:15 Total Protein 6.2 g/dL (6.5-8.0) L 03/14/20 09:15 Albumin 3.7 g/dL (3.5-5.0) 03/14/20 09:15 Carcinoembryonic Ag 4.80 mg/mL 01/15/20 13:49 Progress Note: A/P (1) Metastatic colon cancer in female Status: Deleted Assessment and plan: This is a pleasant 74 year-old lady, with Colon Cancer She underwent surgical resection on March 15 2018. Pathology revealed 3/14 lymph nodes, stage pT3, N1b. She is on adjuvant chemotherapy, with FOLFOX-based regimen, in view of the positive Lymph nodes. She had complained of pain in her right upper quadrant area, at one of her previous visits. CT scan of the abdomen showed: New postsurgical changes following right colectomy. Stool throughout the colon questionable for constipation. Thickened heterogeneous-appearing endometrium. Follow-up pelvic ultrasound was done on August 22 and showed: Thickened heterogenous endometrium with cystic areas seen. No visible focal lesion. Ovaries are not seen. She had an exam by Dr. Farley, in November. He noted hemorrhoids. She had a pelvic exam and hysteroscopy under anesthesia on December [address] Roger. Pathology revealed: Endometrium, shavings: Fragments of inactive endometrium with cystic atrophy; few fragments with polypoid features; no fragments of leiomyoma identified. I am so glad there was no malignancy. She is on the Gabapentin 200 mg 3 times a day, for the neuropathy. Her symptoms improved. I repeated her CT scan of the chest and abdomen. This revealed: Question slight interval increase in soft tissue surrounding the surgical staple line in the right lower quadrant post right colectomy. New low-attenuation or cystic lesion in the small bowel mesentery questionable for a necrotic lymph node. Findings are concerning for possible recurrent disease. Correlation with CEA level and attention on follow-up recommended. Mild diverticulosis of the colon. Repeat CEA level was 1.6. She saw Dr. Farley, to follow-up on the above findings. She had a colonoscopy done on June [address] Farley. It revealed: 1. Some redness on one area of the anastomotic site. 2. Small polyp about 3 mm area of the level of about 60 cm. 3. External hemorrhoids. Pathology revealed: A. Anastomosis, biopsies: Colonic mucosa within normal limits; negative for dysplasia or malignancy. B. Colon, polyp at 60 cm, polypectomy: Tubular adenoma; negative for high-grade dysplasia. CT scan of the abdomen from 12/13 revealed: * No evidence of metastatic disease within the chest. * Worse retroperitoneal and mesenteric lymphadenopathy. * Unremarkable right lower quadrant ileocolic anastomosis without evidence of local recurrence. biopsy of the lymph node from 12/28 revealed: Lymph node, left retroperitoneal, biopsy: - Moderately differentiated adenocarcinoma involving fibrovascular tissue. - Background adipose tissue and skeletal muscle. - Definitive lymph node sampling not seen. The morphology of the tumor is consistent with a colon primary. MSI, lackey-TRK, KRAS, NRAS and BRAF testing can be attempted, though the volume of tumor in the sample is low. KRAS Mutation: Not Detected I decided to treat her with Irinotecan and Vectibix based regimen. Details of the regimen including potential side effects of skin rash, hypersensitivity reaction, nausea vomiting diarrhea, renal toxicity, peripheral neuropathy, risk of infection, need for antibiotic blood transfusion and growth factors were all addressed with her. She understood and was willing to proceed. She has so far been tolerating the treatment reasonably well. She has had ongoing tingling residual from the oxaliplatin. PLAN: I will gradually increase her gabapentin. She was advised to take it 3 times a day for now. We can increase further as tolerated as it helps. She has been given a prescription for oxycodone for the pain. She takes that as needed as well. She was advised to take a bowel regimen with it. I will give her 1 more cycle and then re-stage her with another CT scan. Thank you, cc: Dr. Farley. - Time Spent With Patient Total time spent is greater than 50% in coordination of care (as documented) at patient's floor/unit and/or counseling patient: 25 - 35 minutes
[2020-03-28 09:16] VITALS: BP 137/65; PULSE 96; RESP 18; TEMP 36.2; O2SAT 97; BMI 28.0
[2020-03-28 09:37] LABS: Hematocrit 36.3 % (37-47); Hemoglobin 11.7 g/dl (12.0-16.0); Mean Corpuscular HGB Conc 32.2 g/dl (31.0-35.0); Mean Corpuscular Hemoglobin 28.5 pg (27.0-33.0); Mean Corpuscular Volume 88.5 fL (80-98); Mean Platelet Volume 9.2 fL (9.4-12.3); NRBC Pct Auto 0.4 /100WBC (0.0-0.2); Platelet Count 119 X10*3/uL (160-400); Red Cell Distribution Width 16.1 % (11.0-16.0); White Blood Count 13.5 X10*3/uL (4.8-10.8)
[2020-03-28 10:00] LABS: Alanine Aminotransferase 18 U/L (0-31); Albumin Level 3.8 g/dL (3.5-5.0); Alkaline Phosphatase 141 U/L (39-117); Anion Gap 12 (12-20); Aspartate Amino Transferase 15 U/L (5-31); Bilirubin Total 0.7 mg/dL (0.0-1.0); Blood Urea Nitrogen 11 mg/dL (9-16); Calcium 8.9 mg/dL (8.4-10.2); Carbon Dioxide 27 mmol/L (22-29); Chloride 106 mmol/L (96-108); Creatinine Clr Calc Pharmacy 67.9; Estimated Glomerular Filt Rate > 60; Glucose Random 149 mg/dL (60-115); Magnesium 1.8 mg/dL (1.6-2.6); Potassium 3.3 mmol/l (3.3-5.1); Sodium 142 mmol/L (135-145); Total Protein 6.2 g/dL (6.5-8.0)
[2020-03-28 10:24] LABS: Band Neutrophils Percent 9 % (3-5); Lymphocytes Absolute Manual 1.6 X10*3/uL (0.6-4.8); Lymphocytes Percent Manual 12 % (20-40); Metamyelocytes Absolute 0.4 X10*3/uL; Metamyelocytes Percent 3 %; Monocytes Absolute Manual 0.9 X10*3/uL (0.0-1.2); Monocytes Percent Manual 7 % (2-11); Neutrophils Absolute Manual 10.5 X10*3/uL (2.2-7.9); Neutrophils Percent Manual 69 % (45-73); Nucleated Red Blood Cells 1 /100WBC (0-0)
[2020-03-28 10:27] LABS: Ovalocytes 1+; Platelet Estimate DECREASED (NORMAL); Platelet Morphology Comment NORMAL; Polychromasia 1+; RBC Morphology NOTED; Tear Drop Cells 1+
[2020-03-28] MEDS: diphenhydrAMINE HCL 50 MG/ML VIAL 25 MG IVPUSH (10:45)
[2020-03-28] MEDS: Acetaminophen 325 MG TABLET 650 MG PO (10:45)
[2020-03-28] MEDS: dexAMETHasone sod phosphate/NS 12 MG/50 ML PIGGYBACK 200 MG IV (11:06)
[2020-03-28] MEDS: ondansetron HCL/NS 16 MG/50 ML PIGGYBACK 200 MG IV (11:25)
[2020-03-28] MEDS: Fosaprepitant Dimeglumine 150 MG in 0.9 % Sodium Chloride 145 ML 300 MG IV (11:44)
--- NOTE | 2020-03-28 13:12 | MHC.HEMONC ---
Patient complained of increased neuropathy to fingers and toes, Dr. Roth aware. Gabapentin dose increased, ok to continue current treatment.
[2020-03-28] MEDS: Irinotecan HCl 300 MG, Irinotecan HCl 20 MG in Dextrose 5 % 500 ML 344 MG IV (13:41)
[2020-03-28] MEDS: Pegfilgrastim Onpro 6 MG/0.6 ML SYR.W..INJ SUBCUT (15:31)
[2020-04-10 16:29] VITALS: BMI 28.0
[2020-04-11 09:43] VITALS: BP 137/80; PULSE 94; RESP 18; TEMP 36.2; O2SAT 98; BMI 27.9
[2020-04-11 10:04] LABS: MANUAL DIFF FLAG NO
[2020-04-11 10:10] LABS: Basophils Percent Auto 0.1 % (0-2); Eosinophils Percent Auto 0.5 % (0-4); Hematocrit 33.9 % (37-47); Hemoglobin 11.2 g/dl (12.0-16.0); Imm Gran Abs Auto 0.07 X10*3/uL (0.00-0.03); Imm Gran Pct Auto 0.8 % (0.0-0.4); Lymphocytes Absolute Auto 1.6 X10*3/uL (1.2-4.9); Lymphocytes Percent Auto 17.7 % (20-40); Mean Corpuscular Hemoglobin 29.1 pg (27.0-33.0); Mean Corpuscular Volume 88.1 fL (80-98); Mean Platelet Volume 8.9 fL (9.4-12.3); Monocytes Absolute Auto 0.6 X10*3/uL (0.1-1.2); Monocytes Percent Auto 7.1 % (2-11); Neutrophils Absolute Auto 6.5 X10*3/uL (2.0-8.3); Neutrophils Percent Auto 73.8 % (45-73); Platelet Count 183 X10*3/uL (160-400); Red Blood Count 3.85 X10*6/uL (4.20-5.50); Red Cell Distribution Width 16.6 % (11.0-16.0); White Blood Count 8.8 X10*3/uL (4.8-10.8)
[2020-04-11 10:38] LABS: Alanine Aminotransferase 18 U/L (0-31); Albumin Level 3.9 g/dL (3.5-5.0); Alkaline Phosphatase 92 U/L (39-117); Anion Gap 13 (12-20); Aspartate Amino Transferase 10 U/L (5-31); Bilirubin Total 0.7 mg/dL (0.0-1.0); Blood Urea Nitrogen 18 mg/dL (9-16); Carbon Dioxide 27 mmol/L (22-29); Chloride 103 mmol/L (96-108); Creatinine Clr Calc Pharmacy 66.8; Estimated Glomerular Filt Rate > 60; Glucose Random 225 mg/dL (60-115); Potassium 3.4 mmol/l (3.3-5.1); Sodium 140 mmol/L (135-145); Total Protein 6.2 g/dL (6.5-8.0)
[2020-04-11] MEDS: Acetaminophen 325 MG TABLET 650 MG PO (11:15)
[2020-04-11] MEDS: diphenhydrAMINE HCL 25 MG TABLET PO (11:15)
[2020-04-11] MEDS: dexAMETHasone sod phosphate/NS 12 MG/50 ML PIGGYBACK 200 MG IV (11:16)
[2020-04-11] MEDS: 0.9 % Sodium Chloride 1,000 ML 500 ML IVCONT (11:19)
[2020-04-11] MEDS: ondansetron HCL/NS 16 MG/50 ML PIGGYBACK 200 MG IV (11:37)
[2020-04-11] MEDS: Fosaprepitant Dimeglumine 150 MG in 0.9 % Sodium Chloride 145 ML 300 MG IV (11:59)
[2020-04-11] MEDS: Atropine Sulfate 1 MG/ML VIAL 0.5 MG SUBCUT (12:42)
[2020-04-11] MEDS: Irinotecan HCl 300 MG, Irinotecan HCl 20 MG in Dextrose 5 % 500 ML 344 MG IV (13:06)
--- NOTE | 2020-04-11 14:37 | MHC.HEMONC ---
Addendum entered by Beth Gallardo RN 04/11/20 16:11: Tobramycin/dexamethasone eye drops sent to pharmacy. Patient aware. Original Note: Patient complaining of facial swelling and eye irritation for one week. Right eye is painful and red. Patient does report some drainage with blurred vision. Dr. Roth made aware and in to assess patient. Panitumumab held, pharmacy notified. Plan to administer Irinotecan only today. Per Dr. Roth FOLFIRI to be added to next regimen. Beckie Logan is out of office today, she will be notified to build regimen. Dr. Heller called however office is closed due to holiday. Will call office on Wednesday to make eye appointment. Patient did tolerate Irinotecan today, Neulasta on pro administered. Spoke with Gabrielle over phone with update- did reinforce if patient develops further swelling or eye symptoms to notify medical front desk coordinator oncologist over weekend.
[2020-04-11] MEDS: Heparin Sodium,Porcine Flush 500 UNIT/5 ML SYRINGE IVFLUSH (14:55)
[2020-04-11] MEDS: Pegfilgrastim Onpro 6 MG/0.6 ML SYR.W..INJ SUBCUT (14:55)
--- NOTE | 2020-04-16 09:16 | MHC.HEMONCMA ---
Dr oRth referred patient to Dr Dinh for her right eye pain, blurry vision with redness and dryness. I called and spoke to the staff, she is able to been seen today at 10:40am. I called and spoke with Sister Meghan, she is aware of this appt and will be able to get there.
--- NOTE | 2020-04-16 09:42 | MHC.HEMONCMA ---
Dr Dinh's office called, they state that with Sister's insurance it does not cover seeing an eye doctor, and that if she is seen she will have to pay out of pocket for visit. I did call the patient and speak with her, she states she is doing better, the blurry vision is gone, paid has gotten better and it is not red or dry anymore. I spoke with Dr Roth, she states that if she is feeling better she does not need to see the eye doctor. Patient was made aware that she does not need to see the doctor, and that I will check in with her later in the week.
[2020-04-23 14:46] VITALS: BMI 27.9
[2020-04-25 09:41] VITALS: BP 135/72; PULSE 107; RESP 18; TEMP 36.2; O2SAT 97; BMI 28.6
[2020-04-25 10:13] LABS: Hematocrit 33.9 % (37-47); Hemoglobin 10.9 g/dl (12.0-16.0); Mean Corpuscular HGB Conc 32.2 g/dl (31.0-35.0); Mean Corpuscular Hemoglobin 28.9 pg (27.0-33.0); Mean Corpuscular Volume 89.9 fL (80-98); Mean Platelet Volume 9.6 fL (9.4-12.3); NRBC Pct Auto 0.3 /100WBC (0.0-0.2); Platelet Count 152 X10*3/uL (160-400); Red Blood Count 3.77 X10*6/uL (4.20-5.50); Red Cell Distribution Width 17.4 % (11.0-16.0); White Blood Count 10.5 X10*3/uL (4.8-10.8)
[2020-04-25 10:48] LABS: Alanine Aminotransferase 17 U/L (0-31); Albumin Level 3.7 g/dL (3.5-5.0); Alkaline Phosphatase 120 U/L (39-117); Anion Gap 14 (12-20); Aspartate Amino Transferase 13 U/L (5-31); Bilirubin Total 0.5 mg/dL (0.0-1.0); Blood Urea Nitrogen 12 mg/dL (9-16); Calcium 8.5 mg/dL (8.4-10.2); Carbon Dioxide 27 mmol/L (22-29); Chloride 106 mmol/L (96-108); Creatinine Clr Calc Pharmacy 68.5; Estimated Glomerular Filt Rate > 60; Glucose Random 156 mg/dL (60-115); Magnesium 1.7 mg/dL (1.6-2.6); Potassium 3.6 mmol/l (3.3-5.1); Sodium 143 mmol/L (135-145); Total Protein 5.9 g/dL (6.5-8.0)
[2020-04-25 10:54] LABS: Band Neutrophils Percent 3 % (3-5); Eosinophils Absolute Manual 0.1 X10*3/UL (0.0-0.8); Eosinophils Percent Manual 1 % (0-4); Lymphocytes Absolute Manual 1.9 X10*3/uL (0.6-4.8); Lymphocytes Percent Manual 18 % (20-40); Metamyelocytes Absolute 0.2 X10*3/uL; Metamyelocytes Percent 2 %; Monocytes Absolute Manual 0.1 X10*3/uL (0.0-1.2); Monocytes Percent Manual 1 % (2-11); Myelocytes Absolute 0.2 X10*/uL; Myelocytes Percent 2 %; Neutrophils Percent Manual 73 % (45-73)
[2020-04-25 10:55] LABS: Tear Drop Cells 1+
[2020-04-25 10:56] LABS: Ovalocytes 1+; Platelet Estimate NORMAL (NORMAL); Platelet Morphology Comment NORMAL; RBC Morphology NOTED
[2020-04-25 11:18] LABS: Glucose Urine UA 500 MG/DL (NEG); Leukocyte Esterase Urine NEG (NEG); Nitrite Urine NEG (NEG); Specific Gravity - Urine 1.025 (1.005-1.025); Urine Blood NEG (NEG); Urine Ketones 5 MG/DL (NEG); Urine Protein TRACE MG/DL (NEG-TRACE)
[2020-04-25 11:23] LABS: Appearance Urine CLEAR; Color Urine YELLOW
[2020-04-25] MEDS: Acetaminophen 325 MG TABLET 650 MG PO (12:00)
[2020-04-25] MEDS: ondansetron HCL/NS 16 MG/50 ML PIGGYBACK 200 MG IV (12:00)
[2020-04-25] MEDS: diphenhydrAMINE HCL 50 MG/ML VIAL 25 MG IVPUSH (12:21)
[2020-04-25] MEDS: dexAMETHasone sod phosphate/NS 12 MG/50 ML PIGGYBACK 200 MG IV (12:38)
[2020-04-25] MEDS: Fosaprepitant Dimeglumine 150 MG in 0.9 % Sodium Chloride 145 ML 300 MG IV (13:06)
[2020-04-25] MEDS: Atropine Sulfate 1 MG/ML VIAL 0.5 MG SUBCUT (16:43)
[2020-04-25 16:46] LABS: Creatinine Urine 255.58 mg/dL
[2020-04-25] MEDS: Heparin Sodium,Porcine Flush 500 UNIT/5 ML SYRINGE IVFLUSH (17:00)
[2020-04-25] MEDS: Pegfilgrastim Onpro 6 MG/0.6 ML SYR.W..INJ SUBCUT (17:02)
[2020-05-09 09:38] VITALS: BMI 28.5
[2020-05-09 09:51] VITALS: BP 120/63; PULSE 94; RESP 18; TEMP 36.7; O2SAT 96
[2020-05-09 09:53] VITALS: BMI 28.0
[2020-05-09 09:53] LABS: MANUAL DIFF FLAG NO
[2020-05-09 09:54] LABS: Basophils Percent Auto 0.2 % (0-2); Hematocrit 33.2 % (37-47); Hemoglobin 10.9 g/dl (12.0-16.0); Imm Gran Abs Auto 0.66 X10*3/uL (0.00-0.03); Imm Gran Pct Auto 4.5 % (0.0-0.4); Lymphocytes Absolute Auto 1.8 X10*3/uL (1.2-4.9); Lymphocytes Percent Auto 12.4 % (20-40); Mean Corpuscular HGB Conc 32.8 g/dl (31.0-35.0); Mean Corpuscular Hemoglobin 29.2 pg (27.0-33.0); Mean Platelet Volume 9.2 fL (9.4-12.3); Monocytes Absolute Auto 0.8 X10*3/uL (0.1-1.2); Monocytes Percent Auto 5.3 % (2-11); NRBC Pct Auto 0.1 /100WBC (0.0-0.2); Neutrophils Absolute Auto 11.4 X10*3/uL (2.0-8.3); Neutrophils Percent Auto 77.6 % (45-73); Platelet Count 164 X10*3/uL (160-400); Red Blood Count 3.73 X10*6/uL (4.20-5.50); White Blood Count 14.7 X10*3/uL (4.8-10.8)
[2020-05-09 10:30] LABS: Alanine Aminotransferase 18 U/L (0-31); Albumin Level 3.8 g/dL (3.5-5.0); Alkaline Phosphatase 157 U/L (39-117); Anion Gap 16 (12-20); Aspartate Amino Transferase 9 U/L (5-31); Bilirubin Total 0.6 mg/dL (0.0-1.0); Blood Urea Nitrogen 21 mg/dL (9-16); Calcium 9.1 mg/dL (8.4-10.2); Carbon Dioxide 25 mmol/L (22-29); Chloride 103 mmol/L (96-108); Creatinine Clr Calc Pharmacy 62.2; Estimated Glomerular Filt Rate > 60; Glucose Fasting 201 mg/dL (60-99); Potassium 3.4 mmol/l (3.3-5.1); Sodium 141 mmol/L (135-145); Total Protein 6.5 g/dL (6.5-8.0)
[2020-05-09 10:35] LABS: Glucose Urine UA 500 MG/DL (NEG); Leukocyte Esterase Urine NEG (NEG); Nitrite Urine NEG (NEG); Urine Blood NEG (NEG); Urine Ketones NEG (NEG); Urine Protein TRACE MG/DL (NEG-TRACE)
[2020-05-09 10:37] LABS: Appearance Urine CLEAR; Color Urine YELLOW
--- NOTE | 2020-05-09 10:42 | MHC.HEMONCMA ---
Dr Drake ordered CT of abdomen/pevlis, order printed and given to Елена.
--- NOTE | 2020-05-09 10:48 | MHC.HEMONCSW ---
CT ABD/PELVIS W&WO C IS PLACED IN [facility]. FOR ONE DAY. THEY WILL SCHEDULE PATIENT. [facility] AND [facility].
--- NOTE | 2020-05-09 11:01 | MHC.HEMONCSW ---
PHONED, L/M FOR RADIOLOGY ROSA SHAFER ABOUT JALEEL NEED FOR CT ABD/PELVIS W&WO C ALTHOUGH PATIENT ONLY HAS [facility] AND [facility].
--- NOTE | 2020-05-09 14:38 | MHC.HEMONC ---
Exam with Dr. Roth today. Facial swelling remains present. Labs obtained. No SOB or respiratory distress noted. Dr. Roth will hold chemotherapy today, CT scan ordered. ?Irinotecan reaction. PA pending for CT scan. Pharmacy notified. Patient will be called with date and time for CT.
--- NOTE | 2020-05-09 17:11 | P.PNHO_ITS ---
Medical Summary - Medical Summary Date of Service: 05/25/20 Chief complaint: Follow-up for colon cancer. Medical Summary: DIAGNOSIS: A. Ascending colon: Fragments of invasive moderately differentiated adenocarcinoma, and fragments of hyperplastic colonic mucosa. B. Colon, splenic flexure polyp: Tubular adenoma. She had resection done on March by Dr. Farley. Pathology revealed: Margins uninvolved by tumor/dysplasia. Three out of 14 (3/14) lymph nodes positive for metastatic carcinoma. See synoptic report below. TUMOR SITE: Ascending colon TUMOR SIZE: 5.0 x 4.5 cm TUMOR PERFORATION: Not identified HISTOLOGIC TYPE: Adenocarcinoma HISTOLOGIC GRADE: G2: Moderately differentiated TUMOR EXTENSION: Tumor invades through the muscularis propria into the pericolonic tissue MARGINS: All margins are uninvolved by carcinoma or dysplasia LYMPHOVASCULAR INVASION: Not identified PERINEURAL INVASION: Not identified TUMOR DEPOSITS: Present, one Tumor deposit REGIONAL LYMPH NODES: NUMBER INVOLVED: 3 NUMBER EXAMINED: 14 ADDITIONAL FINDINGS: Appendix within normal limits, inflammatory polyp PATHOLOGIC STAGE: [id number] CURRENT THERAPY: FOLFOX -based chemotherapy, started April 26. CYCLE 6 DAY 15 on 11/01 2018. Now with disease recurrence. On Irinotecan and Erbitux cycle number: 3, day 14. Interval History Interval history: This is a pleasant 75 year-old lady, here for a follow-up visit. She does not feel too well. She is tolerating the treatment reasonably well however she has noted swelling of her face. Sometimes it gets worse. She gets pain in her right upper quadrant area. This also gets worst at times. It is up to 10 at its worst. The pain medications do help. She also has ongoing tingling and numbness in her hands and feet. That bothers her. She takes the gabapentin 100 mg twice a day. She denies cough no sputum. No chest pain or trouble breathing. Sometimes she gets pain in her back. She denies any abdominal pain. She gets some nausea but no vomiting. Bowels are working without any gross blood in it. Her appetite is good. Her weight is stable. She denies any fever nor chills. She denies headache no dizziness. She does feel rather fatigued. She is in good spirits. Rest of the review of systems is unremarkable. Review of Systems - Constitutional Reports no additional constitutional complaints, Reports fatigue, Denies fever(s), Reports lack of energy, Reports malaise - Eyes Reports no additional eye complaints - ENT Reports no additional ear, nose, mouth, and throat complaints - Cardiovascular Reports no additional cardiovascular complaints - Respiratory Reports no additional respiratory complaints - Gastrointestinal Reports no additional gastrointestinal complaints, Reports abdominal pain, Denies black, tarry stools, Reports bloating, Reports nausea - Genitourinary Reports no additional female genitourinary complaints - Musculoskeletal Reports no additional musculoskeletal complaints - Integumentary/Breasts Skin/Breast: Reports no additional skin complaints - Neurologic Reports no additional neurologic complaints, Denies abnormal gait, Reports tingling - Psychiatric Reports no additional psychiatric complaints - Endocrine Reports no additional endocrine complaints - Hematologic/Lymphatic Reports no additional hematologic/lymphatic complaints - Allergic/Immunologic Reports no additional allergic/immunologic complaints PMFSH Functional capacity: independent ambulation Patient : No Surgical History: Surgical History (Last Updated 02/01/20 @ 16:21 by Girish Roth MD) S/P right colectomy Social History: Social History Alcohol History Details: Alcohol intake frequency: does not drink Tobacco History: Smoking Status: Never smoker Substance Use History: Use of substances other than those prescribed or required for medical reasons : No Domestic Abuse History: Have you been hit, kicked, punched, or otherwise hurt by someone within the past year? If so, by whom?: No Do you feel safe in your current relationship?: No Current Relationship Advance Directives: Advance Directives: No Advance Directives Information Provided: No Nutrition Assessment: Recently lost weight without trying: No Eating poorly because of decreased appetite: No Nutrition Risks: No Nutritional Risk Patient : No : No Poor oral hygiene: No Smoking status: Never smoker Home Medications and Allergies Current Medications: Current Medications Generic Name Dose Route Start Last Admin Trade Name Jean Pierre PRN Reason Stop Dose Admin Acetaminophen 650 mg 05/09/20 00:00 Acetaminophen 325 Mg Tablet PO 05/09/20 23:59 ONCE ELIZABETH Atropine Sulfate 0.5 mg 05/09/20 00:00 Atropine Sulfate 1 Mg/Ml Vial SUBCUT 05/09/20 23:59 ONCE ELIZABETH Dexamethasone 12 mg 05/09/20 00:00 Dexamethasone 6 Mg Tablet PO 05/09/20 23:59 ONCE ELIZABETH Diphenhydramine HCl 25 mg 05/09/20 00:00 Diphenhydramine Hcl 50 Mg/Ml Vial IVPUSH 05/09/20 23:59 ONCE ELIZABETH Ondansetron HCl 16 mg in 50 mls @ 200 mls/hr 05/09/20 00:00 Zofran IV 05/09/20 23:59 ONCE [facility] Fosaprepitant 150 mg/ Sodium 150 mls @ 300 mls/hr 05/09/20 00:00 Chloride IV 05/09/20 23:59 ONCE [facility] Home Medications Medication Instructions Recorded Confirmed Type acetaminophen 500 mg PO Q6H PRN 01/15/20 03/28/20 History ascorbic acid (vitamin C) 1,000 mg PO DAILY 01/15/20 03/28/20 History [id number]-[id number]-bfih 1 cap PO Q6H PRN 01/15/20 03/28/20 History [Fioricet] docusate sodium [Colace] 100 mg PO DAILY 01/15/20 03/28/20 History ferrous sulfate 324 mg PO BID 01/15/20 03/28/20 History omeprazole 40 mg PO BID 01/15/20 03/28/20 History tramadol 50 mg PO BID PRN 01/15/20 03/28/20 History vitamin B complex [B 1 tab PO DAILY 01/15/20 03/28/20 History Complex-Vitamin B12] Allergies Allergy/AdvReac Type Severity Reaction Status Date / Time No Known Allergies Allergy Verified 02/08/20 08:33 [No Known Allergies*] Exam Vital signs: Vital Signs Temp 98.0 F 05/09/20 09:51 Pulse 94 05/09/20 09:51 Resp 18 05/09/20 09:51 BP 120/63 05/09/20 09:51 Pulse Ox 96 05/09/20 09:51 Intake & Output 05/08/20 05/09/20 05/09/20 18:59 06:59 18:59 Other: Weight 71.8 kg Weight 71.8 kg Body Mass Index 28.0 - Constitutional Present: no acute distress, mild distress - Routine HEENT Exam Head: Present: normal inspection Eye: Present: normal appearance ENT: Present: mucous membranes moist - Routine Neck Exam Present: full ROM - Routine Respiratory Exam Present: CTAB - Routine Cardiovascular Exam Cardiovascular: Present: RRR, S1, S2 - Routine Abdominal Exam Present: nontender - Routine Rectal Exam Patient deferred: digital exam - Routine Extremities Exam Present: nontender - Routine Back/Spine/Pelvis Exam Back/Spine: Present: full ROM - Routine Skin Exam Present: intact - Routine Neurological Exam Present: alert, oriented X3 - Detailed Neurological Exam: Coma Scale Eye Opening: Spontaneous (4) - Routine Psychiatric Exam Present: normal affect Data - Labs CBC & Chem 7: 05/09/20 09:41 05/09/20 09:41 Labs: 01/15/20 13:49 CEA [Carcinoembryonic Antigen] Routine Complete Blood Count Auto Diff Routine Comprehensive Met. Panel Routine 01/15/20 14:25 Heparin Sodium,Porcine Flush 500 unit 0.9 % Sodium Chloride Flush [NS Flush] 5 ml IVFLUSH ONCE 02/01/20 15:42 Heparin Sodium,Porcine Flush 500 unit 0.9 % Sodium Chloride Flush [NS Flush] 5 ml IVFLUSH ONCE 02/01/20 15:45 CMP [Comprehensive Met. Panel] Routine Complete Blood Count Auto Diff Routine 02/01/20 15:47 Heparin Sodium,Porcine Flush 500 unit IVFLUSH .STK-MED ONE 02/08/20 00:00 Acetaminophen [Tylenol] 650 mg PO ONCE Fosaprepitant Dimeglumine [Emend] 150 mg 0.9 % Sodium Chloride [Ns] 145 ml IV ONCE Heparin Sodium,Porcine Flush 500 unit IVFLUSH ONCE Irinotecan HCl [Camptosar] 300 mg Irinotecan HCl [Camptosar] 30 mg Dextrose 5 % [D5w] 500 ml IV ONCE Panitumumab [Vectibix] 400 mg Panitumumab [Vectibix] 60 mg 0.9 % Sodium Chloride [Ns] 77 ml IV ONCE dexAMETHasone sod phosphate/NS [Decadron] 12 mg in 50 ml IV ONCE diphenhydrAMINE HCL [Benadryl] 25 mg IVPUSH ONCE ondansetron HCL/NS [Zofran] 16 mg in 50 ml IV ONCE 02/08/20 10:07 CMP [Comprehensive Met. Panel] Routine Complete Blood Count Auto Diff Routine 02/08/20 15:00 oxyCODONE HCl Immed Release [Roxicodone] 5 mg PO ONCE ONE 02/15/20 15:18 Heparin Sodium,Porcine Flush 500 unit 0.9 % Sodium Chloride Flush [NS Flush] 5 ml IVFLUSH ONCE 02/15/20 15:24 Heparin Sodium,Porcine Flush 500 unit IVFLUSH .STK-MED ONE 02/15/20 15:53 CMP [Comprehensive Met. Panel] Routine Complete Blood Count Auto Diff Routine SLIDE REVIEW Routine 02/22/20 00:00 Acetaminophen [Tylenol] 650 mg PO ONCE Fosaprepitant Dimeglumine [Emend] 150 mg 0.9 % Sodium Chloride [Ns] 145 ml IV ONCE Heparin Sodium,Porcine Flush 500 unit IVFLUSH ONCE Irinotecan HCl [Camptosar] 200 mg Irinotecan HCl [Camptosar] 40 mg Dextrose 5 % [D5w] 500 ml IV ONCE Panitumumab [Vectibix] 400 mg Panitumumab [Vectibix] 40 mg 0.9 % Sodium Chloride [Ns] 78 ml IV ONCE dexAMETHasone sod phosphate/NS [Decadron] 12 mg in 50 ml IV ONCE diphenhydrAMINE HCL [Benadryl] 25 mg PO ONCE ondansetron HCL/NS [Zofran] 16 mg in 50 ml IV ONCE 02/22/20 10:25 Complete Blood Count Auto Diff Routine Comprehensive Met. Panel Routine SLIDE REVIEW Routine 02/22/20 12:34 Pegfilgrastim Onpro [Neulasta Onpro] 6 mg SUBCUT ONCE ONE 02/22/20 12:41 oxyCODONE HCl Immed Release [Roxicodone] 5 mg PO ONCE ONE 02/23/20 00:00 Pegfilgrastim-cbqv [Udenyca] 6 mg SUBCUT ONCE 02/29/20 10:20 Heparin Sodium,Porcine Flush 500 unit 0.9 % Sodium Chloride Flush [NS Flush] 5 ml IVFLUSH ONCE 02/29/20 10:30 Heparin Sodium,Porcine Flush 500 unit IVFLUSH .[facility]-MED ONE 02/29/20 11:00 Complete Blood Count Man Dif Routine Profile w/ Glucose [place] [Comprehensive Met. Panel] Routine 0.9 % Sodium Chloride [Ns] 1,000 ml IVCONT 500 mls/hr ondansetron HCL/NS [Zofran] 16 mg in 50 ml IV ONCE 02/29/20 11:57 Acetaminophen [Tylenol] 650 mg PO ONCE ONE 03/06/20 00:00 Atropine Sulfate 0.5 mg SUBCUT ONCE Fosaprepitant Dimeglumine [Emend] 150 mg 0.9 % Sodium Chloride [Ns] 145 ml IV ONCE Heparin Sodium,Porcine Flush 500 unit IVFLUSH ONCE Pegfilgrastim Onpro [Neulasta Onpro] 6 mg SUBCUT ONCE dexAMETHasone sod phosphate/NS [Decadron] 12 mg in 50 ml IV ONCE diphenhydrAMINE HCL [Benadryl] 25 mg IVPUSH ONCE 03/14/20 00:00 Atropine Sulfate 0.5 mg SUBCUT ONCE Fosaprepitant Dimeglumine [Emend] 150 mg 0.9 % Sodium Chloride [Ns] 145 ml IV ONCE Heparin Sodium,Porcine Flush 500 unit IVFLUSH ONCE Irinotecan HCl [Camptosar] 300 mg Irinotecan HCl [Camptosar] 20 mg Dextrose 5 % [D5w] 500 ml IV ONCE Panitumumab [Vectibix] 400 mg Panitumumab [Vectibix] 40 mg 0.9 % Sodium Chloride [Ns] 78 ml IV ONCE Pegfilgrastim Onpro [Neulasta Onpro] 6 mg SUBCUT ONCE dexAMETHasone sod phosphate/NS [Decadron] 12 mg in 50 ml IV ONCE diphenhydrAMINE HCL [Benadryl] 25 mg IVPUSH ONCE 03/14/20 09:15 Complete Blood Count Auto Diff Routine Comprehensive Met. Panel Routine 03/14/20 10:00 ondansetron HCL/NS [Zofran] 16 mg in 50 ml IV ONCE 03/28/20 00:00 Acetaminophen [Tylenol] 650 mg PO ONCE Fosaprepitant Dimeglumine [Emend] 150 mg 0.9 % Sodium Chloride [Ns] 145 ml IV ONCE Heparin Sodium,Porcine Flush 500 unit IVFLUSH ONCE Irinotecan HCl [Camptosar] 300 mg Irinotecan HCl [Camptosar] 20 mg Dextrose 5 % [D5w] 500 ml IV ONCE dexAMETHasone sod phosphate/NS [Decadron] 12 mg in 50 ml IV ONCE diphenhydrAMINE HCL [Benadryl] 25 mg IVPUSH ONCE ondansetron HCL/NS [Zofran] 16 mg in 50 ml IV ONCE 03/28/20 09:26 Complete Blood Count Man Dif Routine Comprehensive Met. Panel Routine Magnesium Routine 03/28/20 10:45 Panitumumab [Vectibix] 440 mg 0.9 % Sodium Chloride [Ns] 78 ml IV ONCE 03/28/20 14:35 Pegfilgrastim Onpro [Neulasta Onpro] 6 mg SUBCUT ONCE ONE 03/28/20 15:22 Heparin Sodium,Porcine Flush 500 unit 0.9 % Sodium Chloride Flush [NS Flush] 5 ml IVFLUSH ONCE 03/28/20 15:29 Heparin Sodium,Porcine Flush 500 unit IVFLUSH .STK-MED ONE 04/11/20 00:00 Acetaminophen [Tylenol] 650 mg PO ONCE Atropine Sulfate 0.5 mg SUBCUT ONCE Fosaprepitant Dimeglumine [Emend] 150 mg 0.9 % Sodium Chloride [Ns] 145 ml IV ONCE Heparin Sodium,Porcine Flush 500 unit IVFLUSH ONCE Irinotecan HCl [Camptosar] 300 mg Irinotecan HCl [Camptosar] 20 mg Dextrose 5 % [D5w] 500 ml IV ONCE dexAMETHasone sod phosphate/NS [Decadron] 12 mg in 50 ml IV ONCE diphenhydrAMINE HCL [Benadryl] 25 mg PO ONCE ondansetron HCL/NS [Zofran] 16 mg in 50 ml IV ONCE 04/11/20 10:00 Complete Blood Count Auto Diff Routine Comprehensive Met. Panel Routine 04/11/20 11:00 0.9 % Sodium Chloride [Ns] 1,000 ml IVCONT 500 mls/hr 04/11/20 14:27 Pegfilgrastim Onpro [Neulasta Onpro] 6 mg SUBCUT ONCE ONE 04/23/20 00:00 Fosaprepitant Dimeglumine [Emend] 150 mg 0.9 % Sodium Chloride [Ns] 145 ml IV ONCE dexAMETHasone sod phosphate/NS [Decadron] 12 mg in 50 ml IV ONCE ondansetron HCL/NS [Zofran] 16 mg in 50 ml IV ONCE 04/25/20 00:00 Acetaminophen [Tylenol] 650 mg PO ONCE Acetaminophen [Tylenol] 650 mg PO ONCE Bevacizumab [Avastin] 358 mg 0.9 % Sodium Chloride [Ns] 85.68 ml IV ONCE Fosaprepitant Dimeglumine [Emend] 150 mg 0.9 % Sodium Chloride [Ns] 145 ml IV ONCE Heparin Sodium,Porcine Flush 500 unit IVFLUSH ONCE Heparin Sodium,Porcine Flush 500 unit IVFLUSH ONCE Irinotecan HCl [Camptosar] 320.4 mg Dextrose 5 % [D5w] 500 ml IV ONCE Pegfilgrastim Onpro [Neulasta Onpro] 6 mg SUBCUT ONCE dexAMETHasone sod phosphate/NS [Decadron] 12 mg in 50 ml IV ONCE diphenhydrAMINE HCL [Benadryl] 25 mg IVPUSH ONCE diphenhydrAMINE HCL [Benadryl] 25 mg IVPUSH ONCE ondansetron HCL/NS [Zofran] 16 mg in 50 ml IV ONCE 04/25/20 10:00 Complete Blood Count Man Dif Routine Comprehensive Met. Panel Routine Magnesium Routine 04/25/20 10:44 Creatinine Urine Routine UA and rflx microscopic Routine 04/25/20 16:33 Atropine Sulfate 0.5 mg SUBCUT ONCE ONE 05/09/20 00:00 Pegfilgrastim Onpro [Neulasta Onpro] 6 mg SUBCUT ONCE 05/09/20 09:41 CEA [Carcinoembryonic Antigen] Routine Complete Blood Count Auto Diff Routine Comprehensive Hustler. Panel Fast Routine Magnesium Routine 05/09/20 10:20 UA and rflx microscopic Routine 05/09/20 11:55 Heparin Sodium,Porcine Flush 500 unit 0.9 % Sodium Chloride Flush [NS Flush] 5 ml IVFLUSH ONCE 05/09/20 12:03 Heparin Sodium,Porcine Flush 500 unit IVFLUSH .[facility] ONE Laboratory Last Values WBC 14.7 X10*3/uL (4.8-10.8) H 05/09/20 09:41 RBC 3.73 X10*6/uL (4.20-5.50) L 05/09/20 09:41 Hgb 10.9 g/dl (12.0-16.0) L 05/09/20 09:41 Hct 33.2 % (37-47) L 05/09/20 09:41 MCV 89.0 fL (80-98) 05/09/20 09:41 MCH 29.2 pg (27.0-33.0) 05/09/20 09:41 MCHC 32.8 g/dl (31.0-35.0) 05/09/20 09:41 RDW 17.0 % (11.0-16.0) H 05/09/20 09:41 Plt Count 164 X10*3/uL (160-400) 05/09/20 09:41 MPV 9.2 fL (9.4-12.3) L 05/09/20 09:41 Immature Gran % (Auto) 4.5 % (0.0-0.4) H 05/09/20 09:41 Neut % (Auto) 77.6 % (45-73) H 05/09/20 09:41 Lymph % (Auto) 12.4 % (20-40) L 05/09/20 09:41 Humphreys % (Auto) 5.3 % (2-11) 05/09/20 09:41 Eos % (Auto) 0.0 % (0-4) 05/09/20 09:41 Baso % (Auto) 0.2 % (0-2) 05/09/20 09:41 Neut # (Auto) 2.3 X10*3/uL (2.0-8.3) 01/15/20 13:49 Lymph # (Auto) 1.8 X10*3/uL (1.2-4.9) 05/09/20 09:41 Humphreys # (Auto) 0.8 X10*3/uL (0.1-1.2) 05/09/20 09:41 Eos # (Auto) 0.0 X10*3/uL (0.0-0.4) 05/09/20 09:41 Baso # (Auto) 0.0 X10*3/uL (0.0-0.2) 05/09/20 09:41 Abs Immat Gran (auto) 0.66 X10*3/uL (0.00-0.03) H 05/09/20 09:41 Absolute Neuts (auto) 11.4 X10*3/uL (2.0-8.3) H 05/09/20 09:41 Absolute Nucleated RBC 0.020 X10*3/uL (0.0-0.012) H 05/09/20 09:41 Nucleated RBC % (auto) 0.1 /100WBC (0.0-0.2) 05/09/20 09:41 Neutrophils % (Manual) 73 % (45-73) 04/25/20 10:00 Band Neutrophils % 3 % (3-5) 04/25/20 10:00 Lymphocytes % (Manual) 18 % (20-40) L 04/25/20 10:00 Monocytes % (Manual) 1 % (2-11) L 04/25/20 10:00 Eosinophils % (Manual) 1 % (0-4) 04/25/20 10:00 Metamyelocytes % 2 % 04/25/20 10:00 Myelocytes % 2 % 04/25/20 10:00 Abs Neuts (Manual) 8.0 X10*3/uL (2.2-7.9) H 04/25/20 10:00 Lymphocytes # (Manual) 1.9 X10*3/uL (0.6-4.8) 04/25/20 10:00 Monocytes # (Manual) 0.1 X10*3/uL (0.0-1.2) 04/25/20 10:00 Eosinophils # (Manual) 0.1 X10*3/UL (0.0-0.8) 04/25/20 10:00 Metamyelocytes # 0.2 X10*3/uL 04/25/20 10:00 Myelocytes # 0.2 X10*/uL 04/25/20 10:00 Nucleated RBCs 1 /100WBC (0-0) H 03/28/20 09:26 Dohle Bodies PRESENT 02/29/20 11:00 Platelet Estimate NORMAL (NORMAL) 04/25/20 10:00 Plt Morphology Comment NORMAL 04/25/20 10:00 RBC Morphology NOTED 04/25/20 10:00 Polychromasia 1+ 03/28/20 09:26 Tear Drop Cells 1+ 04/25/20 10:00 Ovalocytes 1+ 04/25/20 10:00 Smear Tech's Comments VERIFIED 02/22/20 10:25 Sodium 141 mmol/L (135-145) 05/09/20 09:41 Potassium 3.4 mmol/l (3.3-5.1) 05/09/20 09:41 Chloride 103 mmol/L (96-108) 05/09/20 09:41 Carbon Dioxide 25 mmol/L (22-29) 05/09/20 09:41 Anion Gap 16 (12-20) 05/09/20 09:41 BUN 21 mg/dL (9-16) H D 05/09/20 09:41 Creatinine 0.73 mg/dL (0.5-1.4) 05/09/20 09:41 Estim Creat Clear Calc 62.2 05/09/20 09:41 Estimated GFR > 60 05/09/20 09:41 Random Glucose 156 mg/dL (60-115) H 04/25/20 10:00 Fasting Glucose 201 mg/dL (60-99) H 05/09/20 09:41 Calcium 9.1 mg/dL (8.4-10.2) D 05/09/20 09:41 Magnesium 2.0 mg/dL (1.6-2.6) 05/09/20 09:41 Total Bilirubin 0.6 mg/dL (0.0-1.0) 05/09/20 09:41 AST 9 U/L (5-31) 05/09/20 09:41 ALT 18 U/L (0-31) 05/09/20 09:41 Alkaline Phosphatase 157 U/L (39-117) H D 05/09/20 09:41 Total Protein 6.5 g/dL (6.5-8.0) 05/09/20 09:41 Albumin 3.8 g/dL (3.5-5.0) 05/09/20 09:41 Carcinoembryonic Ag 55.30 mg/mL D 05/09/20 09:41 Urine Color YELLOW 05/09/20 10:20 Urine Appearance CLEAR 05/09/20 10:20 Urine pH 6.0 (5.0-8.0) 05/09/20 10:20 Ur Specific [place] 1.020 (1.005-1.025) 05/09/20 10:20 Urine Protein TRACE MG/DL (NEG-TRACE) 05/09/20 10:20 Urine Glucose (UA) 500 MG/DL (NEG) H 05/09/20 10:20 Urine Ketones NEG MG/DL (NEG) 05/09/20 10:20 Urine Blood NEG (NEG) 05/09/20 10:20 Urine Nitrite NEG (NEG) 05/09/20 10:20 Ur Leukocyte Esterase NEG (NEG) 05/09/20 10:20 Urine Creatinine 255.58 mg/dL 04/25/20 10:44 Progress Note: A/P (1) Metastatic colon cancer in female Status: Deleted Assessment and plan: . This is a pleasant 74 year-old lady, with Colon Cancer She underwent surgical resection on March 15 2018. Pathology revealed 3 lymph nodes, stage pT3, N1b. She is on adjuvant chemotherapy, with FOLFOX-based regimen, in view of the positive Lymph nodes. She had complained of pain in her right upper quadrant area, at one of her previous visits. CT scan of the abdomen showed: New postsurgical changes following right colectomy. Stool throughout the colon questionable for constipation. Thickened heterogeneous-appearing endometrium. Follow-up pelvic ultrasound was done on August 22 and showed: Thickened heterogenous endometrium with cystic areas seen. No visible focal lesion. Ovaries are not seen. She had an exam by Dr. Farley, in November. He noted hemorrhoids. She had a pelvic exam and hysteroscopy under anesthesia on December [address] Roger. Pathology revealed: Endometrium, shavings: Fragments of inactive endometrium with cystic atrophy; few fragments with polypoid features; no fragments of leiomyoma identified. I am so glad there was no malignancy. She is on the Gabapentin 200 mg 3 times a day, for the neuropathy. Her symptoms improved. I repeated her CT scan of the chest and abdomen. This revealed: Question slight interval increase in soft tissue surrounding the surgical staple line in the right lower quadrant post right colectomy. New low-attenuation or cystic lesion in the small bowel mesentery questionable for a necrotic lymph node. Findings are concerning for possible recurrent disease. Correlation with CEA level and attention on follow-up recommended. Mild diverticulosis of the colon. Repeat CEA level was 1.6. She saw Dr. Farley, to follow-up on the above findings. She had a colonoscopy done on June [address] Farley. It revealed: 1. Some redness on one area of the anastomotic site. 2. Small polyp about 3 mm area of the level of about 60 cm. 3. External hemorrhoids. Pathology revealed: A. Anastomosis, biopsies: Colonic mucosa within normal limits; negative for dysplasia or malignancy. B. Colon, polyp at 60 cm, polypectomy: Tubular adenoma; negative for high- grade dysplasia. CT scan of the abdomen from 12/13 revealed: * No evidence of metastatic disease within the chest. * Worse retroperitoneal and mesenteric lymphadenopathy. * Unremarkable right lower quadrant ileocolic anastomosis without evidence of local recurrence. Biopsy of the lymph node from 12/28 revealed: Lymph node, left retroperitoneal, biopsy: - Moderately differentiated adenocarcinoma involving fibrovascular tissue. - Background adipose tissue and skeletal muscle. - Definitive lymph node sampling not seen. The morphology of the tumor is consistent with a colon primary. MSI, lackey-TRK, KRAS, NRAS and BRAF testing can be attempted, though the volume of tumor in the sample is low. KRAS Mutation: Not Detected I decided to treat her with Irinotecan and Vectibix based regimen. Details of the regimen including potential side effects of skin rash, hypersensitivity reaction, nausea vomiting diarrhea, renal toxicity, peripheral neuropathy, risk of infection, need for antibiotic blood transfusion and growth factors were all addressed with her. She understood and was willing to proceed. She noted swelling of her face. It was quite remarkable. The Vectibix was held and I switched to Avastin. She was well for a while however now it appears that the facial swelling has returned. I am concerned if the area noted can is actually the culprit. Would not want to continue especially if this is ineffective. PLAN: My plan is to proceed with imaging. I will check a CT scan of the abdomen pelvis tomorrow. Will then decide about further treatment. May need to switch to another targeted agent. She will continue on oxycodone for the pain. She takes that as needed as well. She was advised to take a bowel regimen with it. Thank you, cc: Dr. Farley. - Time Spent With Patient Total time spent is greater than 50% in coordination of care (as documented) at patient's floor/unit and/or counseling patient: 25 - 35 minutes
[2020-05-09 23:49] LABS: Creatinine Urine 169.53 mg/dL
--- NOTE | 2020-05-10 09:48 | MHC.HEMONCSW ---
PATIENT REMAINS ALERT AND INDEPENDENT BUT NOT FEELING WELL. C/O SWELLING AND PAIN. CHEMOTHERAPY IS ON HOLD. 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 THEY REQUEST LETTERS FOR IMMIGRATION REQUESTING FAMILY BE ABLE TO COME SEE HER. 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 REASSURANCE, GUIDANCE, EDUCATION AND SUPPORT PROVIDED.
--- NOTE | 2020-05-23 16:21 | MHC.HEMONC ---
Telephone visit completed with Dr. Roth and Gabrielle to review CT results. Plan to stop chemotherapy and follow.
--- NOTE | 2020-05-23 16:57 | P.PNHO_ITS ---
Medical Summary - Medical Summary Date of Service: 05/23/20 Medical Summary: DIAGNOSIS: A. Ascending colon: Fragments of invasive moderately differentiated adenocarcinoma, and fragments of hyperplastic colonic mucosa. B. Colon, splenic flexure polyp: Tubular adenoma. She had resection done on March by Dr. Farley. Pathology revealed: Margins uninvolved by tumor/dysplasia. Three out of 14 (3/14) lymph nodes positive for metastatic carcinoma. See synoptic report below. TUMOR SITE: Ascending colon TUMOR SIZE: 5.0 x 4.5 cm TUMOR PERFORATION: Not identified HISTOLOGIC TYPE: Adenocarcinoma HISTOLOGIC GRADE: G2: Moderately differentiated TUMOR EXTENSION: Tumor invades through the muscularis propria into the pericolonic tissue MARGINS: All margins are uninvolved by carcinoma or dysplasia LYMPHOVASCULAR INVASION: Not identified PERINEURAL INVASION: Not identified TUMOR DEPOSITS: Present, one Tumor deposit REGIONAL LYMPH NODES: NUMBER INVOLVED: 3 NUMBER EXAMINED: 14 ADDITIONAL FINDINGS: Appendix within normal limits, inflammatory polyp PATHOLOGIC STAGE: [id number] CURRENT THERAPY: FOLFOX -based chemotherapy, started April 26. CYCLE 6 DAY 15 on 11/01 2018. Now with disease recurrence. On Irinotecan and Erbitux cycle number: 3, day 14. Interval History Interval history: This is a pleasant 75 year-old lady, here for a follow-up visit. She does not feel too well. She is tolerating the treatment reasonably well however she has noted swelling of her face. Sometimes it gets worse. She gets pain in her right upper quadrant area. This also gets worst at times. It is up to 10 at its worst. The pain medications do help. She also has ongoing tingling and numbness in her hands and feet. That bothers her. She takes the gabapentin 100 mg twice a day. She denies cough no sputum. No chest pain or trouble breathing. Sometimes she gets pain in her back. She denies any abdominal pain. She gets some nausea but no vomiting. Bowels are working without any gross blood in it. Her appetite is good. Her weight is stable. She denies any fever nor chills. She denies headache no dizziness. She does feel rather fatigued. She is in good spirits. Rest of the review of systems is unremarkable. Review of Systems - Constitutional Reports no additional constitutional complaints - Eyes Reports no additional eye complaints - ENT Reports no additional ear, nose, mouth, and throat complaints - Cardiovascular Reports no additional cardiovascular complaints - Respiratory Reports no additional respiratory complaints - Gastrointestinal Reports no additional gastrointestinal complaints - Genitourinary Reports no additional female genitourinary complaints - Musculoskeletal Reports no additional musculoskeletal complaints - Integumentary/Breasts Skin/Breast: Reports no additional skin complaints - Neurologic Reports no additional neurologic complaints, Denies abnormal gait, Reports t ingling - Psychiatric Reports no additional psychiatric complaints - Endocrine Reports no additional endocrine complaints - Hematologic/Lymphatic Reports no additional hematologic/lymphatic complaints - Allergic/Immunologic Reports no additional allergic/immunologic complaints PMFSH Functional capacity: independent ambulation Patient : No Surgical History: Surgical History (Last Updated 02/01/20 @ 16:21 by Girish Roth MD) S/P right colectomy Social History: Social History Alcohol History Details: Alcohol intake frequency: does not drink Tobacco History: Smoking Status: Never smoker Substance Use History: Use of substances other than those prescribed or required for medical reasons : No Domestic Abuse History: Have you been hit, kicked, punched, or otherwise hurt by someone within the past year? If so, by whom?: No Do you feel safe in your current relationship?: No Current Relationship Advance Directives: Advance Directives: No Advance Directives Information Provided: No Nutrition Assessment: Recently lost weight without trying: No Eating poorly because of decreased appetite: No Nutrition Risks: No Nutritional Risk Patient : No : No Poor oral hygiene: No Smoking status: Never smoker Home Medications and Allergies Home Medications Medication Instructions Recorded Confirmed Type acetaminophen 500 mg PO Q6H PRN 01/15/20 03/28/20 History ascorbic acid (vitamin C) 1,000 mg PO DAILY 01/15/20 03/28/20 History hszyadcagx-[id number]-lwnj 1 cap PO Q6H PRN 01/15/20 03/28/20 History [Fioricet] docusate sodium [Colace] 100 mg PO DAILY 01/15/20 03/28/20 History ferrous sulfate 324 mg PO BID 01/15/20 03/28/20 History omeprazole 40 mg PO BID 01/15/20 03/28/20 History tramadol 50 mg PO BID PRN 01/15/20 03/28/20 History vitamin B complex [B 1 tab PO DAILY 01/15/20 03/28/20 History Complex-Vitamin B12] Allergies Allergy/AdvReac Type Severity Reaction Status Date / Time No Known Allergies Allergy Verified 02/08/20 08:33 [No Known Allergies*] Exam Vital signs: Vital Signs Temp 98.0 F 05/09/20 09:51 Pulse 94 05/09/20 09:51 Resp 18 05/09/20 09:51 BP 120/63 05/09/20 09:51 Pulse Ox 96 05/09/20 09:51 Weight 71.8 kg Body Mass Index 28.0 - Constitutional Present: no acute distress, mild distress - Routine HEENT Exam Head: Present: normal inspection - Routine Neck Exam Present: full ROM - Routine Respiratory Exam Present: CTAB - Routine Cardiovascular Exam Cardiovascular: Present: RRR, S1, S2 - Routine Abdominal Exam Present: nontender - Routine Rectal Exam Patient deferred: digital exam - Routine Extremities Exam Present: nontender - Routine Back/Spine/Pelvis Exam Back/Spine: Present: full ROM - Routine Skin Exam Present: intact - Routine Neurological Exam Present: alert, oriented X3 - Detailed Neurological Exam: Coma Scale Eye Opening: Spontaneous (4) - Routine Psychiatric Exam Present: normal affect Data - Labs CBC & Chem 7: 05/09/20 09:41 05/09/20 09:41 Labs: 01/15/20 13:49 CEA [Carcinoembryonic Antigen] Routine Complete Blood Count Auto Diff Routine Comprehensive Met. Panel Routine 01/15/20 14:25 Heparin Sodium,Porcine Flush 500 unit 0.9 % Sodium Chloride Flush [NS Flush] 5 ml IVFLUSH ONCE 02/01/20 15:42 Heparin Sodium,Porcine Flush 500 unit 0.9 % Sodium Chloride Flush [NS Flush] 5 ml IVFLUSH ONCE 02/01/20 15:45 CMP [Comprehensive Met. Panel] Routine Complete Blood Count Auto Diff Routine 02/01/20 15:47 Heparin Sodium,Porcine Flush 500 unit IVFLUSH .[facility]-MED ONE 02/08/20 00:00 Acetaminophen [Tylenol] 650 mg PO ONCE Fosaprepitant Dimeglumine [Emend] 150 mg 0.9 % Sodium Chloride [Ns] 145 ml IV ONCE Heparin Sodium,Porcine Flush 500 unit IVFLUSH ONCE Irinotecan HCl [Camptosar] 300 mg Irinotecan HCl [Camptosar] 30 mg Dextrose 5 % [D5w] 500 ml IV ONCE Panitumumab [Vectibix] 400 mg Panitumumab [Vectibix] 60 mg 0.9 % Sodium Chloride [Ns] 77 ml IV ONCE dexAMETHasone sod phosphate/NS [Decadron] 12 mg in 50 ml IV ONCE diphenhydrAMINE HCL [Benadryl] 25 mg IVPUSH ONCE ondansetron HCL/NS [Zofran] 16 mg in 50 ml IV ONCE 02/08/20 10:07 CMP [Comprehensive Met. Panel] Routine Complete Blood Count Auto Diff Routine 02/08/20 15:00 oxyCODONE HCl Immed Release [Roxicodone] 5 mg PO ONCE ONE 02/15/20 15:18 Heparin Sodium,Porcine Flush 500 unit 0.9 % Sodium Chloride Flush [NS Flush] 5 ml IVFLUSH ONCE 02/15/20 15:24 Heparin Sodium,Porcine Flush 500 unit IVFLUSH [facility] 02/15/20 15:53 CMP [Comprehensive Met. Panel] Routine Complete Blood Count Auto Diff Routine SLIDE REVIEW Routine 02/22/20 00:00 Acetaminophen [Tylenol] 650 mg PO ONCE Fosaprepitant Dimeglumine [Emend] 150 mg 0.9 % Sodium Chloride [Ns] 145 ml IV ONCE Heparin Sodium,Porcine Flush 500 unit IVFLUSH ONCE Irinotecan HCl [Camptosar] 200 mg Irinotecan HCl [Camptosar] 40 mg Dextrose 5 % [D5w] 500 ml IV ONCE Panitumumab [Vectibix] 400 mg Panitumumab [Vectibix] 40 mg 0.9 % Sodium Chloride [Ns] 78 ml IV ONCE dexAMETHasone sod phosphate/NS [Decadron] 12 mg in 50 ml IV ONCE diphenhydrAMINE HCL [Benadryl] 25 mg PO ONCE ondansetron HCL/NS [Zofran] 16 mg in 50 ml IV ONCE 02/22/20 10:25 Complete Blood Count Auto Diff Routine Comprehensive Met. Panel Routine SLIDE REVIEW Routine 02/22/20 12:34 Pegfilgrastim Onpro [Neulasta Onpro] 6 mg SUBCUT ONCE ONE 02/22/20 12:41 oxyCODONE HCl Immed Release [Roxicodone] 5 mg PO ONCE ONE 02/23/20 00:00 Pegfilgrastim-cbqv [Udenyca] 6 mg SUBCUT ONCE 02/29/20 10:20 Heparin Sodium,Porcine Flush 500 unit 0.9 % Sodium Chloride Flush [NS Flush] 5 ml IVFLUSH ONCE 02/29/20 10:30 Heparin Sodium,Porcine Flush 500 unit IVFLUSH .[facility] ONE 02/29/20 11:00 Complete Blood Count Man Dif Routine Profile w/ Glucose [place] [Comprehensive Met. Panel] Routine 0.9 % Sodium Chloride [Ns] 1,000 ml IVCONT 500 mls/hr ondansetron HCL/NS [Zofran] 16 mg in 50 ml IV ONCE 02/29/20 11:57 Acetaminophen [Tylenol] 650 mg PO ONCE ONE 03/06/20 00:00 Atropine Sulfate 0.5 mg SUBCUT ONCE Fosaprepitant Dimeglumine [Emend] 150 mg 0.9 % Sodium Chloride [Ns] 145 ml IV ONCE Heparin Sodium,Porcine Flush 500 unit IVFLUSH ONCE Pegfilgrastim Onpro [Neulasta Onpro] 6 mg SUBCUT ONCE dexAMETHasone sod phosphate/NS [Decadron] 12 mg in 50 ml IV ONCE diphenhydrAMINE HCL [Benadryl] 25 mg IVPUSH ONCE 03/14/20 00:00 Atropine Sulfate 0.5 mg SUBCUT ONCE Fosaprepitant Dimeglumine [Emend] 150 mg 0.9 % Sodium Chloride [Ns] 145 ml IV ONCE Heparin Sodium,Porcine Flush 500 unit IVFLUSH ONCE Irinotecan HCl [Camptosar] 300 mg Irinotecan HCl [Camptosar] 20 mg Dextrose 5 % [D5w] 500 ml IV ONCE Panitumumab [Vectibix] 400 mg Panitumumab [Vectibix] 40 mg 0.9 % Sodium Chloride [Ns] 78 ml IV ONCE Pegfilgrastim Onpro [Neulasta Onpro] 6 mg SUBCUT ONCE dexAMETHasone sod phosphate/NS [Decadron] 12 mg in 50 ml IV ONCE diphenhydrAMINE HCL [Benadryl] 25 mg IVPUSH ONCE 03/14/20 09:15 Complete Blood Count Auto Diff Routine Comprehensive Met. Panel Routine 03/14/20 10:00 ondansetron HCL/NS [Zofran] 16 mg in 50 ml IV ONCE 03/28/20 00:00 Acetaminophen [Tylenol] 650 mg PO ONCE Fosaprepitant Dimeglumine [Emend] 150 mg 0.9 % Sodium Chloride [Ns] 145 ml IV ONCE Heparin Sodium,Porcine Flush 500 unit IVFLUSH ONCE Irinotecan HCl [Camptosar] 300 mg Irinotecan HCl [Camptosar] 20 mg Dextrose 5 % [D5w] 500 ml IV ONCE dexAMETHasone sod phosphate/NS [Decadron] 12 mg in 50 ml IV ONCE diphenhydrAMINE HCL [Benadryl] 25 mg IVPUSH ONCE ondansetron HCL/NS [Zofran] 16 mg in 50 ml IV ONCE 03/28/20 09:26 Complete Blood Count Man Dif Routine Comprehensive Met. Panel Routine Magnesium Routine 03/28/20 10:45 Panitumumab [Vectibix] 440 mg 0.9 % Sodium Chloride [Ns] 78 ml IV ONCE 03/28/20 14:35 Pegfilgrastim Onpro [Neulasta Onpro] 6 mg SUBCUT ONCE ONE 03/28/20 15:22 Heparin Sodium,Porcine Flush 500 unit 0.9 % Sodium Chloride Flush [NS Flush] 5 ml IVFLUSH ONCE 03/28/20 15:29 Heparin Sodium,Porcine Flush 500 unit IVFLUSH .STK-MED ONE 04/11/20 00:00 Acetaminophen [Tylenol] 650 mg PO ONCE Atropine Sulfate 0.5 mg SUBCUT ONCE Fosaprepitant Dimeglumine [Emend] 150 mg 0.9 % Sodium Chloride [Ns] 145 ml IV ONCE Heparin Sodium,Porcine Flush 500 unit IVFLUSH ONCE Irinotecan HCl [Camptosar] 300 mg Irinotecan HCl [Camptosar] 20 mg Dextrose 5 % [D5w] 500 ml IV ONCE dexAMETHasone sod phosphate/NS [Decadron] 12 mg in 50 ml IV ONCE diphenhydrAMINE HCL [Benadryl] 25 mg PO ONCE ondansetron HCL/NS [Zofran] 16 mg in 50 ml IV ONCE 04/11/20 10:00 Complete Blood Count Auto Diff Routine Comprehensive Met. Panel Routine 04/11/20 11:00 0.9 % Sodium Chloride [Ns] 1,000 ml IVCONT 500 mls/hr 04/11/20 14:27 Pegfilgrastim Onpro [Neulasta Onpro] 6 mg SUBCUT ONCE ONE 04/23/20 00:00 Fosaprepitant Dimeglumine [Emend] 150 mg 0.9 % Sodium Chloride [Ns] 145 ml IV ONCE dexAMETHasone sod phosphate/NS [Decadron] 12 mg in 50 ml IV ONCE ondansetron HCL/NS [Zofran] 16 mg in 50 ml IV ONCE 04/25/20 00:00 Acetaminophen [Tylenol] 650 mg PO ONCE Acetaminophen [Tylenol] 650 mg PO ONCE Bevacizumab [Avastin] 358 mg 0.9 % Sodium Chloride [Ns] 85.68 ml IV ONCE Fosaprepitant Dimeglumine [Emend] 150 mg 0.9 % Sodium Chloride [Ns] 145 ml IV ONCE Heparin Sodium,Porcine Flush 500 unit IVFLUSH ONCE Heparin Sodium,Porcine Flush 500 unit IVFLUSH ONCE Irinotecan HCl [Camptosar] 320.4 mg Dextrose 5 % [D5w] 500 ml IV ONCE Pegfilgrastim Onpro [Neulasta Onpro] 6 mg SUBCUT ONCE dexAMETHasone sod phosphate/NS [Decadron] 12 mg in 50 ml IV ONCE diphenhydrAMINE HCL [Benadryl] 25 mg IVPUSH ONCE diphenhydrAMINE HCL [Benadryl] 25 mg IVPUSH ONCE ondansetron HCL/NS [Zofran] 16 mg in 50 ml IV ONCE 04/25/20 10:00 Complete Blood Count Man Dif Routine Comprehensive Met. Panel Routine Magnesium Routine 04/25/20 10:44 Creatinine Urine Routine UA and rflx microscopic Routine 04/25/20 16:33 Atropine Sulfate 0.5 mg SUBCUT ONCE ONE 05/09/20 00:00 Pegfilgrastim Onpro [Neulasta Onpro] 6 mg SUBCUT ONCE 05/09/20 09:41 CEA [Carcinoembryonic Antigen] Routine Complete Blood Count Auto Diff Routine Comprehensive [place]. Panel Fast Routine Magnesium Routine 05/09/20 10:20 UA and rflx microscopic Routine 05/09/20 11:55 Heparin Sodium,Porcine Flush 500 unit 0.9 % Sodium Chloride Flush [NS Flush] 5 ml IVFLUSH ONCE 05/09/20 12:03 Heparin Sodium,Porcine Flush 500 unit IVFLUSH [facility] Laboratory Last Values WBC 14.7 X10*3/uL (4.8-10.8) H 05/09/20 09:41 RBC 3.73 X10*6/uL (4.20-5.50) L 05/09/20 09:41 Hgb 10.9 g/dl (12.0-16.0) L 05/09/20 09:41 Hct 33.2 % (37-47) L 05/09/20 09:41 MCV 89.0 fL (80-98) 05/09/20 09:41 MCH 29.2 pg (27.0-33.0) 05/09/20 09:41 MCHC 32.8 g/dl (31.0-35.0) 05/09/20 09:41 RDW 17.0 % (11.0-16.0) H 05/09/20 09:41 Plt Count 164 X10*3/uL (160-400) 05/09/20 09:41 MPV 9.2 fL (9.4-12.3) L 05/09/20 09:41 Immature Gran % (Auto) 4.5 % (0.0-0.4) H 05/09/20 09:41 Neut % (Auto) 77.6 % (45-73) H 05/09/20 09:41 Lymph % (Auto) 12.4 % (20-40) L 05/09/20 09:41 [place] % (Auto) 5.3 % (2-11) 05/09/20 09:41 Eos % (Auto) 0.0 % (0-4) 05/09/20 09:41 Baso % (Auto) 0.2 % (0-2) 05/09/20 09:41 Neut # (Auto) 2.3 X10*3/uL (2.0-8.3) 01/15/20 13:49 Lymph # (Auto) 1.8 X10*3/uL (1.2-4.9) 05/09/20 09:41 [place] # (Auto) 0.8 X10*3/uL (0.1-1.2) 05/09/20 09:41 Eos # (Auto) 0.0 X10*3/uL (0.0-0.4) 05/09/20 09:41 Baso # (Auto) 0.0 X10*3/uL (0.0-0.2) 05/09/20 09:41 Abs Immat Gran (auto) 0.66 X10*3/uL (0.00-0.03) H 05/09/20 09:41 Absolute Neuts (auto) 11.4 X10*3/uL (2.0-8.3) H 05/09/20 09:41 Absolute Nucleated RBC 0.020 X10*3/uL (0.0-0.012) H 05/09/20 09:41 Nucleated RBC % (auto) 0.1 /100WBC (0.0-0.2) 05/09/20 09:41 Neutrophils % (Manual) 73 % (45-73) 04/25/20 10:00 Band Neutrophils % 3 % (3-5) 04/25/20 10:00 Lymphocytes % (Manual) 18 % (20-40) L 04/25/20 10:00 Monocytes % (Manual) 1 % (2-11) L 04/25/20 10:00 Eosinophils % (Manual) 1 % (0-4) 04/25/20 10:00 Metamyelocytes % 2 % 04/25/20 10:00 Myelocytes % 2 % 04/25/20 10:00 Abs Neuts (Manual) 8.0 X10*3/uL (2.2-7.9) H 04/25/20 10:00 Lymphocytes # (Manual) 1.9 X10*3/uL (0.6-4.8) 04/25/20 10:00 Monocytes # (Manual) 0.1 X10*3/uL (0.0-1.2) 04/25/20 10:00 Eosinophils # (Manual) 0.1 X10*3/UL (0.0-0.8) 04/25/20 10:00 Metamyelocytes # 0.2 X10*3/uL 04/25/20 10:00 Myelocytes # 0.2 X10*/uL 04/25/20 10:00 Nucleated RBCs 1 /100WBC (0-0) H 03/28/20 09:26 Dohle Bodies PRESENT 02/29/20 11:00 Platelet Estimate NORMAL (NORMAL) 04/25/20 10:00 Plt Morphology Comment NORMAL 04/25/20 10:00 RBC Morphology NOTED 04/25/20 10:00 Polychromasia 1+ 03/28/20 09:26 Tear Drop Cells 1+ 04/25/20 10:00 Ovalocytes 1+ 04/25/20 10:00 Smear Tech's Comments VERIFIED 02/22/20 10:25 Sodium 141 mmol/L (135-145) 05/09/20 09:41 Potassium 3.4 mmol/l (3.3-5.1) 05/09/20 09:41 Chloride 103 mmol/L (96-108) 05/09/20 09:41 Carbon Dioxide 25 mmol/L (22-29) 05/09/20 09:41 Anion Gap 16 (12-20) 05/09/20 09:41 BUN 21 mg/dL (9-16) H D 05/09/20 09:41 Creatinine 0.73 mg/dL (0.5-1.4) 05/09/20 09:41 Estim Creat Clear Calc 62.2 05/09/20 09:41 Estimated GFR > 60 05/09/20 09:41 Random Glucose 156 mg/dL (60-115) H 04/25/20 10:00 Fasting Glucose 201 mg/dL (60-99) H 05/09/20 09:41 Calcium 9.1 mg/dL (8.4-10.2) D 05/09/20 09:41 Magnesium 2.0 mg/dL (1.6-2.6) 05/09/20 09:41 Total Bilirubin 0.6 mg/dL (0.0-1.0) 05/09/20 09:41 AST 9 U/L (5-31) 05/09/20 09:41 ALT 18 U/L (0-31) 05/09/20 09:41 Alkaline Phosphatase 157 U/L (39-117) H D 05/09/20 09:41 Total Protein 6.5 g/dL (6.5-8.0) 05/09/20 09:41 Albumin 3.8 g/dL (3.5-5.0) 05/09/20 09:41 Carcinoembryonic Ag 55.30 mg/mL D 05/09/20 09:41 Urine Color YELLOW 05/09/20 10:20 Urine Appearance CLEAR 05/09/20 10:20 Urine pH 6.0 (5.0-8.0) 05/09/20 10:20 Ur Specific [place] 1.020 (1.005-1.025) 05/09/20 10:20 Urine Protein TRACE MG/DL (NEG-TRACE) 05/09/20 10:20 Urine Glucose (UA) 500 MG/DL (NEG) H 05/09/20 10:20 Urine Ketones NEG MG/DL (NEG) 05/09/20 10:20 Urine Blood NEG (NEG) 05/09/20 10:20 Urine Nitrite NEG (NEG) 05/09/20 10:20 Ur Leukocyte Esterase NEG (NEG) 05/09/20 10:20 Urine Creatinine 255.58 mg/dL 04/25/20 10:44 Progress Note: A/P (1) Metastatic colon cancer in female Status: Deleted Assessment and plan: . This is a pleasant 74 year-old lady, with Colon Cancer She underwent surgical resection on March 15 2018. Pathology revealed 3 lymph nodes, stage pT3, N1b. She is on adjuvant chemotherapy, with FOLFOX-based regimen, in view of the positive Lymph nodes. She had complained of pain in her right upper quadrant area, at one of her previous visits. CT scan of the abdomen showed: New postsurgical changes following right colectomy. Stool throughout the colon questionable for constipation. Thickened heterogeneous-appearing endometrium. Follow-up pelvic ultrasound was done on August 22 and showed: Thickened heterogenous endometrium with cystic areas seen. No visible focal lesion. Ovaries are not seen. She had an exam by Dr. Farley, in November. He noted hemorrhoids. She had a pelvic exam and hysteroscopy under anesthesia on December [address] Roger. Pathology revealed: Endometrium, shavings: Fragments of inactive endometrium with cystic atrophy; few fragments with polypoid features; no fragments of leiomyoma identified. I am so glad there was no malignancy. She is on the Gabapentin 200 mg 3 times a day, for the neuropathy. Her symptoms improved. I repeated her CT scan of the chest and abdomen. This revealed: Question slight interval increase in soft tissue surrounding the surgical staple line in the right lower quadrant post right colectomy. New low-attenuation or cystic lesion in the small bowel mesentery questionable for a necrotic lymph node. Findings are concerning for possible recurrent disease. Correlation with CEA level and attention on follow-up recommended. Mild diverticulosis of the colon. Repeat CEA level was 1.6. She saw Dr. Farley, to follow-up on the above findings. She had a colonoscopy done on June [address] Farley. It revealed: 1. Some redness on one area of the anastomotic site. 2. Small polyp about 3 mm area of the level of about 60 cm. 3. External hemorrhoids. Pathology revealed: A. Anastomosis, biopsies: Colonic mucosa within normal limits; negative for dysplasia or malignancy. B. Colon, polyp at 60 cm, polypectomy: Tubular adenoma; negative for high- grade dysplasia. CT scan of the abdomen from 12/13 revealed: * No evidence of metastatic disease within the chest. * Worse retroperitoneal and mesenteric lymphadenopathy. * Unremarkable right lower quadrant ileocolic anastomosis without evidence of local recurrence. Biopsy of the lymph node from 12/28 revealed: Lymph node, left retroperitoneal, biopsy: - Moderately differentiated adenocarcinoma involving fibrovascular tissue. - Background adipose tissue and skeletal muscle. - Definitive lymph node sampling not seen. The morphology of the tumor is consistent with a colon primary. MSI, lackey-TRK, KRAS, NRAS and BRAF testing can be attempted, though the volume of tumor in the sample is low. KRAS Mutation: Not Detected I decided to treat her with Irinotecan and Vectibix based regimen. Details of the regimen including potential side effects of skin rash, hypersensitivity reaction, nausea vomiting diarrhea, renal toxicity, peripheral neuropathy, risk of infection, need for antibiotic blood transfusion and growth factors were all addressed with her. She understood and was willing to proceed. She noted swelling of her face. It was quite remarkable. The Vectibix was held and I switched to Avastin. She was well for a while however now it appears that the facial swelling has returned. I am concerned if the area noted can is actually the culprit. Would not want to continue especially if this is ineffective. PLAN: My plan is to proceed with imaging. I will check a CT scan of the abdomen pelvis tomorrow. Will then decide about further treatment. May need to switch to another targeted agent. She will continue on oxycodone for the pain. She takes that as needed as well. She was advised to take a bowel regimen with it. Thank you, cc: Dr. Farley. - Time Spent With Patient Total time spent is greater than 50% in coordination of care (as documented) at patient's floor/unit and/or counseling patient: 25 - 35 minutes
--- NOTE | 2020-05-23 16:59 | HO.HEMONCTE1 ---
[facility] Telehealth - Telehealth Location of Provider rendering services: Hem/onc office. Location of Patient: Home. Patient Identification confirmed using: Name, : Yes Telehealth Method: Via Telephone Patient verbally consented to treatment: Yes. Patient verbally consented to billing insurance company: Yes Patient informed of any privacy concerns related to visit: Yes Medical Summary - Medical Summary Date of Service: 05/23/20 Chief complaint: Follow-up for metastatic progressive colon cancer. Medical Summary: DIAGNOSIS: A. Ascending colon: Fragments of invasive moderately differentiated adenocarcinoma, and fragments of hyperplastic colonic mucosa. B. Colon, splenic flexure polyp: Tubular adenoma. She had resection done on March by Dr. Farley. Pathology revealed: Margins uninvolved by tumor/dysplasia. Three out of 14 (3/14) lymph nodes positive for metastatic carcinoma. See synoptic report below. TUMOR SITE: Ascending colon TUMOR SIZE: 5.0 x 4.5 cm TUMOR PERFORATION: Not identified HISTOLOGIC TYPE: Adenocarcinoma HISTOLOGIC GRADE: G2: Moderately differentiated TUMOR EXTENSION: Tumor invades through the muscularis propria into the pericolonic tissue MARGINS: All margins are uninvolved by carcinoma or dysplasia LYMPHOVASCULAR INVASION: Not identified PERINEURAL INVASION: Not identified TUMOR DEPOSITS: Present, one Tumor deposit REGIONAL LYMPH NODES: NUMBER INVOLVED: 3 NUMBER EXAMINED: 14 ADDITIONAL FINDINGS: Appendix within normal limits, inflammatory polyp PATHOLOGIC STAGE: [id number] CURRENT THERAPY: FOLFOX -based chemotherapy, started April 26. CYCLE 6 DAY 15 on 11/01 2018. Now with disease recurrence. On Irinotecan and Erbitux, completed cycle number:3. Interval History Interval history: This is a pleasant 75 year-old lady, with whom a tele- visit was held. She does not feel too well. She has not been tolerating the treatment well. She had noted swelling of her face which sometimes gets worse. She gets pain in her right upper quadrant area. This also gets worst at times. It is up to 10 at its worst. The pain medications do help. She also has ongoing tingling and numbness in her hands and feet. That bothers her. She takes the gabapentin 100 mg twice a day. She denies cough no sputum. No chest pain or trouble breathing. Sometimes she gets pain in her back. She denies any abdominal pain. She gets some nausea but no vomiting. Bowels are working without any gross blood in it. Her appetite is good. Her weight is stable. She denies any fever nor chills. She denies headache no dizziness. She does feel rather fatigued. She is in good spirits. Rest of the review of systems is unremarkable. Review of Systems - Constitutional Reports system reviewed and no additional complaints, except as documented, Reports anorexia, Reports body ache(s), Reports lack of energy, Reports malaise - Eyes Reports system reviewed and no additional complaints, except as documented - ENT Reports system reviewed and no additional complaints, except as documented - Cardiovascular Reports system reviewed and no additional complaints, except as documented - Respiratory Reports no additional respiratory complaints - Gastrointestinal Reports system reviewed and no additional complaints, except as documented, Reports abdominal pain, Reports bloating, Reports change in bowel habits - Genitourinary Reports no additional female genitourinary complaints - Musculoskeletal Reports system reviewed and no additional complaints, except as documented - Integumentary/Breasts Skin/Breast: Reports no additional skin complaints - Neurologic Reports system reviewed and no additional complaints, except as documented, Reports tingling, Reports paresthesias, Reports weakness, Denies abnormal gait - Psychiatric Reports system reviewed and no additional complaints, except as documented - Endocrine Reports no additional endocrine complaints - Hematologic/Lymphatic Reports system reviewed and no additional complaints, except as documented - Allergic/Immunologic Reports system reviewed and no additional complaints, except as documented Home Medications and Allergies Home Medications Medication Instructions Recorded Confirmed Type acetaminophen 500 mg PO Q6H PRN 01/15/20 03/28/20 History ascorbic acid (vitamin C) 1,000 mg PO DAILY 01/15/20 03/28/20 History orojablqxk-qhyrseezpwrit-yjtd 1 cap PO Q6H PRN 01/15/20 03/28/20 History [Fioricet] docusate sodium [Colace] 100 mg PO DAILY 01/15/20 03/28/20 History ferrous sulfate 324 mg PO BID 01/15/20 03/28/20 History omeprazole 40 mg PO BID 01/15/20 03/28/20 History tramadol 50 mg PO BID PRN 01/15/20 03/28/20 History vitamin B complex [B 1 tab PO DAILY 01/15/20 03/28/20 History Complex-Vitamin B12] Allergies Allergy/AdvReac Type Severity Reaction Status Date / Time No Known Allergies Allergy Verified 02/08/20 08:33 [No Known Allergies*] Exam Vital signs: Vital Signs Temp 98.0 F 05/09/20 09:51 Pulse 94 05/09/20 09:51 Resp 18 05/09/20 09:51 BP 120/63 05/09/20 09:51 Pulse Ox 96 05/09/20 09:51 Weight 71.8 kg Body Mass Index 28.0 - Constitutional Present: no acute distress, mild distress - Routine HEENT Exam Head: Present: normal inspection - Routine Neck Exam Present: full ROM - Routine Respiratory Exam Present: CTAB - Routine Cardiovascular Exam Cardiovascular: Present: RRR, S1, S2 - Routine Abdominal Exam Present: nontender - Routine Rectal Exam Patient deferred: digital exam - Routine Extremities Exam Present: nontender - Routine Back/Spine/Pelvis Exam Back/Spine: Present: full ROM - Routine Skin Exam Present: intact - Routine Neurological Exam Present: alert, oriented X3 - Detailed Neurological Exam: Coma Scale Eye Opening: Spontaneous (4) - Routine Psychiatric Exam Present: normal affect Data - Labs CBC & Chem 7: 05/09/20 09:41 05/09/20 09:41 Labs: 01/15/20 13:49 CEA [Carcinoembryonic Antigen] Routine Complete Blood Count Auto Diff Routine Comprehensive Met. Panel Routine 01/15/20 14:25 Heparin Sodium,Porcine Flush 500 unit 0.9 % Sodium Chloride Flush [NS Flush] 5 ml IVFLUSH ONCE 02/01/20 15:42 Heparin Sodium,Porcine Flush 500 unit 0.9 % Sodium Chloride Flush [NS Flush] 5 ml IVFLUSH ONCE 02/01/20 15:45 CMP [Comprehensive Met. Panel] Routine Complete Blood Count Auto Diff Routine 02/01/20 15:47 Heparin Sodium,Porcine Flush 500 unit IVFLUSH .STK-MED ONE 02/08/20 00:00 Acetaminophen [Tylenol] 650 mg PO ONCE Fosaprepitant Dimeglumine [Emend] 150 mg 0.9 % Sodium Chloride [Ns] 145 ml IV ONCE Heparin Sodium,Porcine Flush 500 unit IVFLUSH ONCE Irinotecan HCl [Camptosar] 300 mg Irinotecan HCl [Camptosar] 30 mg Dextrose 5 % [D5w] 500 ml IV ONCE Panitumumab [Vectibix] 400 mg Panitumumab [Vectibix] 60 mg 0.9 % Sodium Chloride [Ns] 77 ml IV ONCE dexAMETHasone sod phosphate/NS [Decadron] 12 mg in 50 ml IV ONCE diphenhydrAMINE HCL [Benadryl] 25 mg IVPUSH ONCE ondansetron HCL/NS [Zofran] 16 mg in 50 ml IV ONCE 02/08/20 10:07 CMP [Comprehensive Met. Panel] Routine Complete Blood Count Auto Diff Routine 02/08/20 15:00 oxyCODONE HCl Immed Release [Roxicodone] 5 mg PO ONCE ONE 02/15/20 15:18 Heparin Sodium,Porcine Flush 500 unit 0.9 % Sodium Chloride Flush [NS Flush] 5 ml IVFLUSH ONCE 02/15/20 15:24 Heparin Sodium,Porcine Flush 500 unit IVFLUSH .ST-MED ONE 02/15/20 15:53 CMP [Comprehensive Met. Panel] Routine Complete Blood Count Auto Diff Routine SLIDE REVIEW Routine 02/22/20 00:00 Acetaminophen [Tylenol] 650 mg PO ONCE Fosaprepitant Dimeglumine [Emend] 150 mg 0.9 % Sodium Chloride [Ns] 145 ml IV ONCE Heparin Sodium,Porcine Flush 500 unit IVFLUSH ONCE Irinotecan HCl [Camptosar] 200 mg Irinotecan HCl [Camptosar] 40 mg Dextrose 5 % [D5w] 500 ml IV ONCE Panitumumab [Vectibix] 400 mg Panitumumab [Vectibix] 40 mg 0.9 % Sodium Chloride [Ns] 78 ml IV ONCE dexAMETHasone sod phosphate/NS [Decadron] 12 mg in 50 ml IV ONCE diphenhydrAMINE HCL [Benadryl] 25 mg PO ONCE ondansetron HCL/NS [Zofran] 16 mg in 50 ml IV ONCE 02/22/20 10:25 Complete Blood Count Auto Diff Routine Comprehensive Met. Panel Routine SLIDE REVIEW Routine 02/22/20 12:34 Pegfilgrastim Onpro [Neulasta Onpro] 6 mg SUBCUT ONCE ONE 02/22/20 12:41 oxyCODONE HCl Immed Release [Roxicodone] 5 mg PO ONCE ONE 02/23/20 00:00 Pegfilgrastim-cbqv [Udenyca] 6 mg SUBCUT ONCE 02/29/20 10:20 Heparin Sodium,Porcine Flush 500 unit 0.9 % Sodium Chloride Flush [NS Flush] 5 ml IVFLUSH ONCE 02/29/20 10:30 Heparin Sodium,Porcine Flush 500 unit IVFLUSH .[facility] ONE 02/29/20 11:00 Complete Blood Count Man Dif Routine Profile w/ Glucose [place] [Comprehensive Met. Panel] Routine 0.9 % Sodium Chloride [Ns] 1,000 ml IVCONT 500 mls/hr ondansetron HCL/NS [Zofran] 16 mg in 50 ml IV ONCE 02/29/20 11:57 Acetaminophen [Tylenol] 650 mg PO ONCE ONE 03/06/20 00:00 Atropine Sulfate 0.5 mg SUBCUT ONCE Fosaprepitant Dimeglumine [Emend] 150 mg 0.9 % Sodium Chloride [Ns] 145 ml IV ONCE Heparin Sodium,Porcine Flush 500 unit IVFLUSH ONCE Pegfilgrastim Onpro [Neulasta Onpro] 6 mg SUBCUT ONCE dexAMETHasone sod phosphate/NS [Decadron] 12 mg in 50 ml IV ONCE diphenhydrAMINE HCL [Benadryl] 25 mg IVPUSH ONCE 03/14/20 00:00 Atropine Sulfate 0.5 mg SUBCUT ONCE Fosaprepitant Dimeglumine [Emend] 150 mg 0.9 % Sodium Chloride [Ns] 145 ml IV ONCE Heparin Sodium,Porcine Flush 500 unit IVFLUSH ONCE Irinotecan HCl [Camptosar] 300 mg Irinotecan HCl [Camptosar] 20 mg Dextrose 5 % [D5w] 500 ml IV ONCE Panitumumab [Vectibix] 400 mg Panitumumab [Vectibix] 40 mg 0.9 % Sodium Chloride [Ns] 78 ml IV ONCE Pegfilgrastim Onpro [Neulasta Onpro] 6 mg SUBCUT ONCE dexAMETHasone sod phosphate/NS [Decadron] 12 mg in 50 ml IV ONCE diphenhydrAMINE HCL [Benadryl] 25 mg IVPUSH ONCE 03/14/20 09:15 Complete Blood Count Auto Diff Routine Comprehensive Met. Panel Routine 03/14/20 10:00 ondansetron HCL/NS [Zofran] 16 mg in 50 ml IV ONCE 03/28/20 00:00 Acetaminophen [Tylenol] 650 mg PO ONCE Fosaprepitant Dimeglumine [Emend] 150 mg 0.9 % Sodium Chloride [Ns] 145 ml IV ONCE Heparin Sodium,Porcine Flush 500 unit IVFLUSH ONCE Irinotecan HCl [Camptosar] 300 mg Irinotecan HCl [Camptosar] 20 mg Dextrose 5 % [D5w] 500 ml IV ONCE dexAMETHasone sod phosphate/NS [Decadron] 12 mg in 50 ml IV ONCE diphenhydrAMINE HCL [Benadryl] 25 mg IVPUSH ONCE ondansetron HCL/NS [Zofran] 16 mg in 50 ml IV ONCE 03/28/20 09:26 Complete Blood Count Man Dif Routine Comprehensive Met. Panel Routine Magnesium Routine 03/28/20 10:45 Panitumumab [Vectibix] 440 mg 0.9 % Sodium Chloride [Ns] 78 ml IV ONCE 03/28/20 14:35 Pegfilgrastim Onpro [Neulasta Onpro] 6 mg SUBCUT ONCE ONE 03/28/20 15:22 Heparin Sodium,Porcine Flush 500 unit 0.9 % Sodium Chloride Flush [NS Flush] 5 ml IVFLUSH ONCE 03/28/20 15:29 Heparin Sodium,Porcine Flush 500 unit IVFLUSH .STK-MED ONE 04/11/20 00:00 Acetaminophen [Tylenol] 650 mg PO ONCE Atropine Sulfate 0.5 mg SUBCUT ONCE Fosaprepitant Dimeglumine [Emend] 150 mg 0.9 % Sodium Chloride [Ns] 145 ml IV ONCE Heparin Sodium,Porcine Flush 500 unit IVFLUSH ONCE Irinotecan HCl [Camptosar] 300 mg Irinotecan HCl [Camptosar] 20 mg Dextrose 5 % [D5w] 500 ml IV ONCE dexAMETHasone sod phosphate/NS [Decadron] 12 mg in 50 ml IV ONCE diphenhydrAMINE HCL [Benadryl] 25 mg PO ONCE ondansetron HCL/NS [Zofran] 16 mg in 50 ml IV ONCE 04/11/20 10:00 Complete Blood Count Auto Diff Routine Comprehensive Met. Panel Routine 04/11/20 11:00 0.9 % Sodium Chloride [Ns] 1,000 ml IVCONT 500 mls/hr 04/11/20 14:27 Pegfilgrastim Onpro [Neulasta Onpro] 6 mg SUBCUT ONCE ONE 04/23/20 00:00 Fosaprepitant Dimeglumine [Emend] 150 mg 0.9 % Sodium Chloride [Ns] 145 ml IV ONCE dexAMETHasone sod phosphate/NS [Decadron] 12 mg in 50 ml IV ONCE ondansetron HCL/NS [Zofran] 16 mg in 50 ml IV ONCE 04/25/20 00:00 Acetaminophen [Tylenol] 650 mg PO ONCE Acetaminophen [Tylenol] 650 mg PO ONCE Bevacizumab [Avastin] 358 mg 0.9 % Sodium Chloride [Ns] 85.68 ml IV ONCE Fosaprepitant Dimeglumine [Emend] 150 mg 0.9 % Sodium Chloride [Ns] 145 ml IV ONCE Heparin Sodium,Porcine Flush 500 unit IVFLUSH ONCE Heparin Sodium,Porcine Flush 500 unit IVFLUSH ONCE Irinotecan HCl [Camptosar] 320.4 mg Dextrose 5 % [D5w] 500 ml IV ONCE Pegfilgrastim Onpro [Neulasta Onpro] 6 mg SUBCUT ONCE dexAMETHasone sod phosphate/NS [Decadron] 12 mg in 50 ml IV ONCE diphenhydrAMINE HCL [Benadryl] 25 mg IVPUSH ONCE diphenhydrAMINE HCL [Benadryl] 25 mg IVPUSH ONCE ondansetron HCL/NS [Zofran] 16 mg in 50 ml IV ONCE 04/25/20 10:00 Complete Blood Count Man Dif Routine Comprehensive Met. Panel Routine Magnesium Routine 04/25/20 10:44 Creatinine Urine Routine UA and rflx microscopic Routine 04/25/20 16:33 Atropine Sulfate 0.5 mg SUBCUT ONCE ONE 05/09/20 00:00 Pegfilgrastim Onpro [Neulasta Onpro] 6 mg SUBCUT ONCE 05/09/20 09:41 CEA [Carcinoembryonic Antigen] Routine Complete Blood Count Auto Diff Routine Comprehensive [place]. Panel Fast Routine Magnesium Routine 05/09/20 10:20 UA and rflx microscopic Routine 05/09/20 11:55 Heparin Sodium,Porcine Flush 500 unit 0.9 % Sodium Chloride Flush [NS Flush] 5 ml IVFLUSH ONCE 05/09/20 12:03 Heparin Sodium,Porcine Flush 500 unit IVFLUSH .STK-MED ONE Laboratory Last Values WBC 14.7 X10*3/uL (4.8-10.8) H 05/09/20 09:41 RBC 3.73 X10*6/uL (4.20-5.50) L 05/09/20 09:41 Hgb 10.9 g/dl (12.0-16.0) L 05/09/20 09:41 Hct 33.2 % (37-47) L 05/09/20 09:41 MCV 89.0 fL (80-98) 05/09/20 09:41 MCH 29.2 pg (27.0-33.0) 05/09/20 09:41 MCHC 32.8 g/dl (31.0-35.0) 05/09/20 09:41 RDW 17.0 % (11.0-16.0) H 05/09/20 09:41 Plt Count 164 X10*3/uL (160-400) 05/09/20 09:41 MPV 9.2 fL (9.4-12.3) L 05/09/20 09:41 Immature Gran % (Auto) 4.5 % (0.0-0.4) H 05/09/20 09:41 Neut % (Auto) 77.6 % (45-73) H 05/09/20 09:41 Lymph % (Auto) 12.4 % (20-40) L 05/09/20 09:41 [place] % (Auto) 5.3 % (2-11) 05/09/20 09:41 Eos % (Auto) 0.0 % (0-4) 05/09/20 09:41 Baso % (Auto) 0.2 % (0-2) 05/09/20 09:41 Neut # (Auto) 2.3 X10*3/uL (2.0-8.3) 01/15/20 13:49 Lymph # (Auto) 1.8 X10*3/uL (1.2-4.9) 05/09/20 09:41 [place] # (Auto) 0.8 X10*3/uL (0.1-1.2) 05/09/20 09:41 Eos # (Auto) 0.0 X10*3/uL (0.0-0.4) 05/09/20 09:41 Baso # (Auto) 0.0 X10*3/uL (0.0-0.2) 05/09/20 09:41 Abs Immat Gran (auto) 0.66 X10*3/uL (0.00-0.03) H 05/09/20 09:41 Absolute Neuts (auto) 11.4 X10*3/uL (2.0-8.3) H 05/09/20 09:41 Absolute Nucleated RBC 0.020 X10*3/uL (0.0-0.012) H 05/09/20 09:41 Nucleated RBC % (auto) 0.1 /100WBC (0.0-0.2) 05/09/20 09:41 Neutrophils % (Manual) 73 % (45-73) 04/25/20 10:00 Band Neutrophils % 3 % (3-5) 04/25/20 10:00 Lymphocytes % (Manual) 18 % (20-40) L 04/25/20 10:00 Monocytes % (Manual) 1 % (2-11) L 04/25/20 10:00 Eosinophils % (Manual) 1 % (0-4) 04/25/20 10:00 Metamyelocytes % 2 % 04/25/20 10:00 Myelocytes % 2 % 04/25/20 10:00 Abs Neuts (Manual) 8.0 X10*3/uL (2.2-7.9) H 04/25/20 10:00 Lymphocytes # (Manual) 1.9 X10*3/uL (0.6-4.8) 04/25/20 10:00 Monocytes # (Manual) 0.1 X10*3/uL (0.0-1.2) 04/25/20 10:00 Eosinophils # (Manual) 0.1 X10*3/UL (0.0-0.8) 04/25/20 10:00 Metamyelocytes # 0.2 X10*3/uL 04/25/20 10:00 Myelocytes # 0.2 X10*/uL 04/25/20 10:00 Nucleated RBCs 1 /100WBC (0-0) H 03/28/20 09:26 Dohle Bodies PRESENT 02/29/20 11:00 Platelet Estimate NORMAL (NORMAL) 04/25/20 10:00 Plt Morphology Comment NORMAL 04/25/20 10:00 RBC Morphology NOTED 04/25/20 10:00 Polychromasia 1+ 03/28/20 09:26 Tear Drop Cells 1+ 04/25/20 10:00 Ovalocytes 1+ 04/25/20 10:00 Smear Tech's Comments VERIFIED 02/22/20 10:25 Sodium 141 mmol/L (135-145) 05/09/20 09:41 Potassium 3.4 mmol/l (3.3-5.1) 05/09/20 09:41 Chloride 103 mmol/L (96-108) 05/09/20 09:41 Carbon Dioxide 25 mmol/L (22-29) 05/09/20 09:41 Anion Gap 16 (12-20) 05/09/20 09:41 BUN 21 mg/dL (9-16) H D 05/09/20 09:41 Creatinine 0.73 mg/dL (0.5-1.4) 05/09/20 09:41 Estim Creat Clear Calc 62.2 05/09/20 09:41 Estimated GFR > 60 05/09/20 09:41 Random Glucose 156 mg/dL (60-115) H 04/25/20 10:00 Fasting Glucose 201 mg/dL (60-99) H 05/09/20 09:41 Calcium 9.1 mg/dL (8.4-10.2) D 05/09/20 09:41 Magnesium 2.0 mg/dL (1.6-2.6) 05/09/20 09:41 Total Bilirubin 0.6 mg/dL (0.0-1.0) 05/09/20 09:41 AST 9 U/L (5-31) 05/09/20 09:41 ALT 18 U/L (0-31) 05/09/20 09:41 Alkaline Phosphatase 157 U/L (39-117) H D 05/09/20 09:41 Total Protein 6.5 g/dL (6.5-8.0) 05/09/20 09:41 Albumin 3.8 g/dL (3.5-5.0) 05/09/20 09:41 Carcinoembryonic Ag 55.30 mg/mL D 05/09/20 09:41 Urine Color YELLOW 05/09/20 10:20 Urine Appearance CLEAR 05/09/20 10:20 Urine pH 6.0 (5.0-8.0) 05/09/20 10:20 Ur Specific [place] 1.020 (1.005-1.025) 05/09/20 10:20 Urine Protein TRACE MG/DL (NEG-TRACE) 05/09/20 10:20 Urine Glucose (UA) 500 MG/DL (NEG) H 05/09/20 10:20 Urine Ketones NEG MG/DL (NEG) 05/09/20 10:20 Urine Blood NEG (NEG) 05/09/20 10:20 Urine Nitrite NEG (NEG) 05/09/20 10:20 Ur Leukocyte Esterase NEG (NEG) 05/09/20 10:20 Urine Creatinine 255.58 mg/dL 04/25/20 10:44 Progress Note: A/P (1) Metastatic colon cancer in female Status: Deleted Assessment and plan: . This is a pleasant 74 year-old lady, with Colon Cancer She underwent surgical resection on March 15 2018. Pathology revealed 3/ lymph nodes, stage pT3, N1b. She is on adjuvant chemotherapy, with FOLFOX-based regimen, in view of the positive Lymph nodes. She had complained of pain in her right upper quadrant area, at one of her previous visits. CT scan of the abdomen showed: New postsurgical changes following right colectomy. Stool throughout the colon questionable for constipation. Thickened heterogeneous-appearing endometrium. Follow-up pelvic ultrasound was done on August 22 and showed: Thickened heterogenous endometrium with cystic areas seen. No visible focal lesion. Ovaries are not seen. She had an exam by Dr. Farley, in November. He noted hemorrhoids. She had a pelvic exam and hysteroscopy under anesthesia on December [address] Roger. Pathology revealed: Endometrium, shavings: Fragments of inactive endometrium with cystic atrophy; few fragments with polypoid features; no fragments of leiomyoma identified. I am so glad there was no malignancy. She is on the Gabapentin 200 mg 3 times a day, for the neuropathy. Her symptoms improved. I repeated her CT scan of the chest and abdomen. This revealed: Question slight interval increase in soft tissue surrounding the surgical staple line in the right lower quadrant post right colectomy. New low-attenuation or cystic lesion in the small bowel mesentery questionable for a necrotic lymph node. Findings are concerning for possible recurrent disease. Correlation with CEA level and attention on follow-up recommended. Mild diverticulosis of the colon. Repeat CEA level was 1.6. She saw Dr. Farley, to follow-up on the above findings. She had a colonoscopy done on June [address] Farley. It revealed: 1. Some redness on one area of the anastomotic site. 2. Small polyp about 3 mm area of the level of about 60 cm. 3. External hemorrhoids. Pathology revealed: A. Anastomosis, biopsies: Colonic mucosa within normal limits; negative for dysplasia or malignancy. B. Colon, polyp at 60 cm, polypectomy: Tubular adenoma; negative for high-grade dysplasia. CT scan of the abdomen from 12/13 revealed: * No evidence of metastatic disease within the chest. * Worse retroperitoneal and mesenteric lymphadenopathy. * Unremarkable right lower quadrant ileocolic anastomosis without evidence of local recurrence. Biopsy of the lymph node from 12/28 revealed: Lymph node, left retroperitoneal, biopsy: - Moderately differentiated adenocarcinoma involving fibrovascular tissue. - Background adipose tissue and skeletal muscle. - Definitive lymph node sampling not seen. The morphology of the tumor is consistent with a colon primary. MSI, lackey-TRK, KRAS, NRAS and BRAF testing can be attempted, though the volume of tumor in the sample is low. KRAS Mutation: Not Detected I decided to treat her with Irinotecan and Vectibix based regimen. Details of the regimen including potential side effects of skin rash, hypersensitivity reaction, nausea vomiting diarrhea, renal toxicity, peripheral neuropathy, risk of infection, need for antibiotic blood transfusion and growth factors were all addressed with her. She understood and was willing to proceed. She noted swelling of her face. It was quite remarkable. The Vectibix was held and I switched to Avastin. She was well for a while however now it appears that the facial swelling has returned. I am concerned if the area noted can is actually the culprit. Would not want to continue especially if this is ineffective. She had a CT scan of the abdomen pelvis, which revealed: New bibasilar pulmonary nodules. New liver lesions. Increasing abdominal lymphadenopathy and retrocrural adenopathy in the lower chest. Findings are suggestive of progression of metastatic disease. I shared the above results with her. Explained that she has had 3 different lines of chemotherapy, most recent one causing substantial toxicity. Now the disease appears to be progressing. Can try another targeted agent however the chances of it working would be slim. Can lead to further morbidity. She is originally from [facility]. If she would like to go back and spent some time with the family now would be a good time since, I am concerned that she may not be able to travel later. I discussed this with her and Gabrielle. She still cannot travel alone. PLAN: She would like her brother to come from [facility] and a bring her with him, for safety. Gabrielle is going to give me information and be will write a letter to the immigration for that to be facilitated. In the meantime, she will continue on oxycodone for the pain. She takes that as needed as well. She was advised to take a bowel regimen with it. She will return next week for follow-up visit. 30 minutes were spent coordinating her care including the tele visit, review of labs, review of imaging and counseling the patient and her niece. Thank you, cc: Dr. Farley. - Time Spent With Patient Total time spent is greater than 50% in coordination of care (as documented) at patient's floor/unit and/or counseling patient: 25 - 35 minutes
--- NOTE | 2020-06-05 13:45 | MHC.HEMONCSW ---
DENAE CALLED, STATING PATIENT REMAINS IN DENIAL ABOUT TREATMENT NOT WORKING. ADVISED SHE SPEAK WITH FRED BOWER AND DR. ESCALANTE. SHE WILL EMAIL ME IMMIGRATION INFORMATION NEEDED FOR MD TO COMPILE A LETTER SO PATIENTS BROTHER CAN COME TO VISIT.
--- NOTE | 2020-07-02 14:37 | MHC.HEMONCSW ---
TRYING TO REFER TO [facility]......GAVE GRICEL ERICKSON THE REFERRAL. SHE WILL ASK HER CHECKER DUMP GROUNDS BECAUSE PATIENT HAS ONLY HSN AND MH LIMITED, SO WOULD BE FREE CARE. WILL FOLLOW UP.
--- NOTE | 2020-07-04 10:40 | MHC.HEMONCSW ---
[facility] COMMERCIAL CREDIT ANALYST SIVAN WILL PROVIDE FREE CARE SERVICES. DEANNA CALLED PATIENT TO ALERT HOSPICE WILL BE CALLING HER.
--- NOTE | 2020-07-17 09:17 | MHC.HEMONCSW ---
Dr Roth has provided Gabrielle a letter requesting emergency visa for patients nephew and his grandchild to come be with her while she receives hospice care.
== END | disposition home or self-care (01) ==
LOC: HO.ONC 01-15 13:29
PROVIDERS: Visit Provider Internal Medicine Medical Oncology
DX: C18.2 Malignant neoplasm of ascending colon (principal); C77.2 Secondary and unspecified malignant neoplasm of intra-abdominal lymph nodes; G62.9 Polyneuropathy, unspecified; Z79.891 Long term (current) use of opiate analgesic; Z79.899 Other long term (current) drug therapy; Z98.0 Intestinal bypass and anastomosis status
CPT/HCPCS: 36415; 36591; 80053; 81003; 82378; 83735; 85007; 85025; 85027; 96361; 96366; 96367; 96372; 96375; 96377; 96413; 96415; 96417; 96523; 99214; J0461; J1100; J1200; J1453; J1642; J2405; J2505; J9035; J9206; J9303; Q0163